=== PATIENT | female | born 1955 | race African-American/Black ===

== ENCOUNTER 2016-09-05 11:47 | Emergency (ER) | payer OTHER ==
[~2016-09-05] VITALS: Ht 162.6 cm; Wt 56.7 kg
[2016-09-05 12:29] VITALS: BP 167/71
--- NOTE | 2016-09-05 12:30 | Emergency Room Report ---
History of Present Illness General Chief Complaint: Skin Rash/Abscess Source: Patient Present Illness HPI 61-year-old female presents to emergency department complaining of itchy rash to the scalp and posterior neck x4 days. Patient states onset of symptoms was after having her hair dyed. Patient reports moderate scratching and new onset scabbing and crusting to the back of the neck x2 days. Patient denies nausea vomiting fevers chills neck pain or stiffness. Patient states she has been applying Vaseline with no relief. She denies contacts/ or family members with similar symptoms. She reports erythema of the scalp. Denies swelling of the lips, tongue or airway, denies wheezing or difficulty breathing. Denies rash or symptoms elsewhere on the body. Denies CP, Palpitations, LOC, AMS, dizziness , Changes in Vision, Sensation, paresthesias, or a sudden severe headache. Allergies: Coded Allergies: PENICILLIN G (Verified Allergy, Mild, RASH, 02/24/11) Patient History Past Medical History: see triage record Past Surgical History: none Pertinent Family History: none Now: No Immunizations: UTD Reviewed Nursing Documentation: PMH: Agreed, PSxH: Agreed Nursing Documentation-PMH Past Medical History: No History, Except For Hx Diabetes: Yes Review of Systems All Other Systems: negative except mentioned in HPI Physical Exam Vital Signs Date Time Temp Pulse Resp B/P Pulse Ox O2 Delivery O2 Flow Rate FiO2 09/05/16 12:17 98.1 78 16 173/72 98 Room Air Sp02 EP Interpretation: reviewed, normal General Appearance: no apparent distress, alert, GCS 15, non-toxic Head: normocephalic, atraumatic, other - erythema, crusting, and excoriations noted to the scalp, no evidnce of infestation. Eyes: bilateral eye PERRL, bilateral eye normal inspection ENT: hearing grossly normal, normal pharynx, no angioedema, normal voice, TMs + canals normal, uvula midline Neck: full range of motion, no meningismus, no bony tend, supple/symm/no masses Respiratory: lungs clear, normal breath sounds, speaking full sentences Cardiovascular #1: regular rate, rhythm, no edema Musculoskeletal: back normal, gait/station normal, normal range of motion, non- tender Neurologic: alert, oriented x3, responsive, motor strength/tone normal, sensory intact, speech normal Psychiatric: judgement/insight normal, memory normal, mood/affect normal, no suicidal/homicidal ideation Skin: warm/dry, well hydrated, rash - erythema, crusting, and excoriations noted to the scalp, no evidnce of infestation. Lymphatic: no adenopathy Medical Decision Making PA Attestation Dr. Peace is my supervising Physician whom patient management has been discussed with. Diagnostic Impression: Primary Impression: Acute dermatitis Additional Impression: Cellulitis Qualified Codes: L03.811 - Cellulitis of head [any part, except face] ER Course 61-year-old female presents to emergency department complaining of itchy rash to the scalp and posterior neck x4 days. Patient states onset of symptoms was after having her hair dyed. Patient reports moderate scratching and new onset scabbing and crusting to the back of the neck x2 days. Patient denies nausea vomiting fevers chills neck pain or stiffness. Patient states she has been applying Vaseline with no relief. She denies contacts/ or family members with similar symptoms. She reports erythema of the scalp. Denies rash or symptoms elsewhere on the body. Ddx considered but are not limited to cellulitis, Lice, scabies, shingles, varicella, dermatitis, urticaria, eczema, tinea Vital signs: are WNL, pt. is afebrile H&PE are most consistent with Acute dermatitis with secondary infection noted. ORDERS: none required at this time, the diagnosis is clinical ED INTERVENTIONS: -Prednisone PO. D/w pt. care plan, and follow up instructions. DISCHARGE: At this time pt. is stable for d/c to home. Will provide printed patient care instructions, and any necessary prescriptions. Care plan and follow up instructions have been discussed with the patient prior to discharge. Last Vital Signs Date Time Temp Pulse Resp B/P Pulse Ox O2 Delivery O2 Flow Rate FiO2 09/05/16 12:17 98.1 78 16 173/72 98 Room Air Disposition: HOME, SELF-CARE Condition: Stable Scripts Bacitracin Zinc/Polymyx B Sulf (HM DOUBLE ANTIBIOTIC OINTMENT) 28.4 Gm Oint...g. 1 APPLIC TP BID, #28.4 GM Prov: Kristal Casas 09/05/16 Prednisone* (PREDNISONE*) 20 Mg Tablet 40 MG ORAL DAILY for 5 Days, #10 TAB Prov: Kirstal Casas.Joelle 09/05/16 Hydroxyzine HCl (Hydroxyzine HCl) 25 Mg Tablet 25 MG ORAL FOUR TIMES A DAY for 10 Days, #40 TAB Prov: Kristal Casas 09/05/16 Doxycycline Monohydrate* (DOXYCYCLINE MONOHYDRATE*) 100 Mg Capsule 100 MG ORAL TWICE A DAY for 7 Days, #14 CAP 0 Refills Prov: Kristal Casas 09/05/16 Patient Instructions: Cellulitis, [id number], Rash Additional Instructions: Take medications as directed. Follow up with PCP in 3-5 days Return sooner to ED if new symptoms occur, or current symptoms become worse. - Please note that this Emergency Department Report was dictated using [employer] technology software, occasionally this can lead to erroneous entry secondary to interpretation by the dictation equipment. Kristal Casas Sep 05, 2016 12:30
[2016-09-05] MEDS ORDERED: HM DOUBLE ANT28.4 G1 TP (12:33)
[2016-09-05] MEDS ORDERED: PREDNISONE20 MG ORAL (12:33)
[2016-09-05] MEDS ORDERED: DOXYCYCLINE MO100 MG ORAL (12:33)
[2016-09-05] MEDS ORDERED: ATARAX25 MG ORAL (12:33)
[2016-09-05] MEDS ORDERED: PredniSONE 20mg tab ORAL ONE (12:45)
[2016-09-05 13:26] VITALS: BP 158/72
== END 2016-09-05 13:30 | disposition home or self-care (01) ==
LOC: EMR 12:45
DX: L30.9 Dermatitis, unspecified (principal); L03.811 Cellulitis of head [any part, except face]; Z88.0 Allergy status to penicillin; E11.9 Type 2 diabetes mellitus without complications
CPT/HCPCS: 99284

== ENCOUNTER 2016-09-16 05:01 | Emergency (ER) | payer OTHER ==
[~2016-09-16] VITALS: Ht 162.6 cm; Wt 70.8 kg
[~2016-09-16 05:01] MED LIST: ATARAX25 MG ORAL; DOXYCYCLINE MO100 MG ORAL; HM DOUBLE ANT28.4 G1 TP; PREDNISONE20 MG ORAL
[2016-09-16] MEDS ORDERED: HYDROCORTISONE28 G2 TP (05:38)
[2016-09-16 05:45] VITALS: BP 120/75
[2016-09-16 05:56] VITALS: BP 120/75
--- NOTE | 2016-09-21 15:15 | Emergency Room Report ---
History of Present Illness General Chief Complaint: Skin Rash/Abscess Source: Patient Present Illness HPI Patient's a 61-year-old female who presented after having increased skin rash and itching to her scalp. Patient had recently been seen in the hospital and given prescription for taking medications as well as steroids. The patient had been using Neosporin to the affected area. Patient reported having increased itching to the scalp locations. She also reported having increased rash to the back of her neck. Allergies: Coded Allergies: PENICILLIN G (Verified Allergy, Mild, RASH, 02/24/11) Patient History Past Medical History: see triage record Last Menstrual Period: NA Now: No Reviewed Nursing Documentation: PMH: Agreed, PSxH: Agreed Nursing Documentation-PMH Hx Diabetes: Yes Review of Systems All Other Systems: negative except mentioned in HPI Physical Exam Vital Signs Date Time Temp Pulse Resp B/P Pulse Ox O2 Delivery O2 Flow Rate FiO2 09/16/16 05:06 97.2 87 18 120/75 98 Room Air General Appearance: well appearing, no apparent distress, GCS 15 Head: normocephalic, atraumatic ENT: hearing grossly normal, normal voice Neck: full range of motion, supple Respiratory: no respiratory distress, speaking full sentences Musculoskeletal: normal inspection, no calf tenderness Neurologic: normal inspection, alert, normal gait Psychiatric: mood/affect normal Skin: other - multiple papules to neck and scalp Medical Decision Making Diagnostic Impression: Primary Impression: Contact dermatitis ER Course Patient presented for skin rash. Differential diagnosis included wasn't limited to cellulitis, or urticaria, contact dermatitis, allergic reaction among others. Patient's benign exam and does not appear to require any further imaging or laboratory testing at this time. The patient was given prescription for steroid cream. The patient is advised to follow up with primary care doctor in 1-2 days. Patient is advised to return if any worsening condition or if any changes in status that are concerning. Last Vital Signs Date Time Temp Pulse Resp B/P Pulse Ox O2 Delivery O2 Flow Rate FiO2 09/16/16 05:56 97.2 18 120/75 98 Room Air 09/16/16 05:06 87 Status: improved Disposition: HOME, SELF-CARE Condition: Stable Scripts Hydrocortisone Acetate 1% Onit (HYDROCORTISONE 1% OINT) Y Oint 28 GM TP DAILY, #28 GM Prov: Lakhwinder Lopez 09/16/16 Referrals: [facility]ERR[facility] (PCP) Departure Forms: Return to Work Return to Work in (Days): 3 Patient Instructions: Contact Dermatitis Lakhwinder Lopez Sep 21, 2016 15:15
== END 2016-09-16 05:50 | disposition home or self-care (01) ==
LOC: EMR 05:24
DX: L25.9 Unspecified contact dermatitis, unspecified cause (principal); Z88.0 Allergy status to penicillin; E11.9 Type 2 diabetes mellitus without complications
CPT/HCPCS: 99283

== ENCOUNTER 2016-11-24 06:50 | Emergency (ER) | payer OTHER ==
[~2016-11-24] VITALS: Ht 170.2 cm; Wt 72.6 kg
[~2016-11-24 06:50] MED LIST changes: +HYDROCORTISONE28 G2 TP
[2016-11-24] MEDS ORDERED: OMEPRAZOLE40 M1 ORAL (07:01)
[2016-11-24] MEDS ORDERED: LANTUS SOL100 UNIT/1 SUBQ (07:01)
[2016-11-24] MEDS ORDERED: METFORMIN HCL1000 M1 ORAL (07:01)
[2016-11-24] MEDS ORDERED: GABAPENTIN300 MG ORAL (07:01)
[2016-11-24] MEDS ORDERED: ASPIR 8181 MG ORAL (07:01)
[2016-11-24 07:10] VITALS: BP 147/75
[2016-11-24] MEDS ORDERED: Morphine Sulfate 4mg/ml Inj IVP ONE (07:30)
[2016-11-24 08:02] LABS: BASOPHILS % (AUTO) 2.3 % (0.0-2.0); EOSINOPHILS % (AUTO) 2.4 % (0.0-3.0); LYMPHOCYTES % (AUTO) 33.3 % (20.0-45.0); MEAN CORPUSCULAR HEMOGLOBIN 29.8 PG (27.0-31.0); MEAN CORPUSCULAR HGB CONC 33.1 G/DL (32.0-36.0); MEAN CORPUSCULAR VOLUME 90 FL (80-99); MEAN PLATELET VOLUME 9.9 FL (6.5-10.1); NEUTROPHILS % (AUTO) 48.1 % (45.0-75.0); PLATELET COUNT 167 K/UL (150-450); RED BLOOD COUNT 4.18 M/UL (4.20-5.40); RED CELL DISTRIBUTION WIDTH 11.6 % (11.6-14.8); WHITE BLOOD COUNT 3.7 K/UL (4.8-10.8)
[2016-11-24 08:10] LABS: ALANINE AMINOTRANSFERASE 11 U/L (3-33); ALBUMIN/GLOBULIN RATIO 0.8 (1.0-2.7); ANION GAP 13 (5-15); APPEARANCE,URINE CLEAR; ASPARTATE AMINO TRANSFERASE 17 U/L (5-40); CALCIUM 9.4 mg/dL (8.6-10.2); CARBON DIOXIDE 25 mEQ/L (20-30); CHLORIDE 96 mEQ/L (98-107); CREATININE 0.8 mg/dL (0.5-0.9); GLOMERULAR FILTRATION RATE > 60 mL/min (>60); HEMOLYSIS 71; KETONES,URINE NEGATIVE (NEGATIVE); LEUKOCYTE ESTERASE ,URINE NEGATIVE (NEGATIVE); LIPASE 36 U/L (< 60); NITRITE,URINE NEGATIVE (NEGATIVE); PH,URINE 5 (4.5-8.0); POTASSIUM 4.8 mEQ/L (3.4-4.9); PROTEIN,URINE 3+ (NEGATIVE); SODIUM 134 mEQ/L (135-145); TOTAL PROTEIN 7.6 g/dL (6.6-8.7); UROBILINOGEN,URINE NORMAL MG/DL (0.0-1.0)
--- NOTE | 2016-11-24 08:11 | Emergency Room Report ---
History of Present Illness General Chief Complaint: Pain Source: Patient Present Illness HPI 61-year-old female presents to ED complaining of flank pain. Patient notes pain to left side of abdomen. States it's been there for many months now but is worse for the last few days. Pain is sharp, left-sided, nonradiating. Worse with positional changes. /10. Denies fevers or chills. Denies nausea or vomiting. Denies dysuria or hematuria. No other aggravating or relieving factors. Denies any other substance symptoms Allergies: Coded Allergies: PENICILLINS (Verified Allergy, Unknown, Rash, 11/24/16) Patient History Past Medical History: HTN, COPD Past Surgical History: none Pertinent Family History: none Social History: Denies: alcohol use, drug use, smoking Last Menstrual Period: n/a Now: No Immunizations: UTD Reviewed Nursing Documentation: PMH: Agreed, PSxH: Agreed Nursing Documentation-PMH Past Medical History: No History, Except For Hx Hypertension: Yes Hx Diabetes: Yes Review of Systems All Other Systems: negative except mentioned in HPI Physical Exam Vital Signs Date Time Temp Pulse Resp B/P Pulse Ox O2 Delivery O2 Flow Rate FiO2 11/24/16 06:55 97.5 91 16 147/75 98 Room Air Sp02 EP Interpretation: reviewed, normal General Appearance: no apparent distress, alert, GCS 15, non-toxic Head: normocephalic, atraumatic Eyes: bilateral eye PERRL, bilateral eye normal inspection ENT: hearing grossly normal, normal pharynx, no angioedema, normal voice Neck: full range of motion, supple/symm/no masses Respiratory: chest non-tender, lungs clear, normal breath sounds, speaking full sentences Cardiovascular #1: regular rate, rhythm, no edema Cardiovascular #2: 2+ carotid (R), 2+ carotid (L), 2+ radial (R), 2+ radial (L) , 2+ dorsalis pedis (R), 2+ dorsalis pedis (L) Gastrointestinal: normal bowel sounds, soft, non-distended, no guarding, no rebound, tenderness - L sided abd TTP Rectal: deferred Genitourinary: normal inspection, no CVA tenderness Musculoskeletal: back normal, gait/station normal, normal range of motion, non- tender Neurologic: alert, oriented x3, responsive, motor strength/tone normal, sensory intact, speech normal Psychiatric: judgement/insight normal, memory normal, mood/affect normal, no suicidal/homicidal ideation Reflexes: 3+ bicep (R), 3+ bicep (L), 3+ tricep (R), 3+ tricep (L), 3+ knee (R) , 3+ knee (L) Skin: normal color, no rash, warm/dry, well hydrated Lymphatic: no adenopathy Medical Decision Making Diagnostic Impression: Primary Impression: Abdominal muscle pain ER Course Hospital Course 61-year-old F presents to ED with abdominal pain Differential diagnosis includes-appendicitis, cholecystitis, small bowel obstruction, gastritis, Clinical course Patient placed on stretcher. After initial history and physical I ordered labs , IV fluids, pain medications and CT scan Labs - no leukocytosis, electrolytes ok, LFTs normal, UA unremarkable CT scan shows no acute pathology In light of normal workup and negative CT I believe patient's pain is likely muscular as it was on the lateral side of the abdomen. 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 we will treat as muscular pain I feel this is a highly complex case requiring extensive working including EKG/ Rhythm strip, Xray/CT/US, Blood/urine lab work, repeat exams while in ED, and administration of strong opiates/narcotics for pain control, admission to hospital or close patient follow up. Diagnosis - abdominal muscle pain Stable and discharged to home with Rx Tylenol, Flexeril. Followup with PMD. Return to ED if symptoms recur or worsen Labs Test 11/24/16 07:30 White Blood Count 3.7 K/UL (4.8-10.8) Red Blood Count 4.18 M/UL (4.20-5.40) Hemoglobin 12.5 G/DL (12.0-16.0) Hematocrit 37.7 % (37.0-47.0) Mean Corpuscular Volume 90 FL (80-99) Mean Corpuscular Hemoglobin 29.8 PG (27.0-31.0) Mean Corpuscular Hemoglobin Concent 33.1 G/DL (32.0-36.0) Red Cell Distribution Width 11.6 % (11.6-14.8) Platelet Count 167 K/UL (150-450) Mean Platelet Volume 9.9 FL (6.5-10.1) Neutrophils (%) (Auto) 48.1 % (45.0-75.0) Lymphocytes (%) (Auto) 33.3 % (20.0-45.0) Monocytes (%) (Auto) 14.0 % (1.0-10.0) Eosinophils (%) (Auto) 2.4 % (0.0-3.0) Basophils (%) (Auto) 2.3 % (0.0-2.0) Urine Color Pale yellow Urine Appearance Clear Urine pH 5 (4.5-8.0) Urine Specific [place] 1.020 (1.005-1.035) Urine Protein 3+ (NEGATIVE) Urine Glucose (UA) 4+ (NEGATIVE) Urine Ketones Negative (NEGATIVE) Urine Occult Blood 1+ (NEGATIVE) Urine Nitrite Negative (NEGATIVE) Urine Bilirubin Negative (NEGATIVE) Urine Urobilinogen Normal MG/DL (0.0-1.0) Urine Leukocyte Esterase Negative (NEGATIVE) Urine RBC 2-4 /HPF (0 - 2) Urine WBC 0-2 /HPF (0 - 2) Urine Squamous Epithelial Cells Few /LPF (NONE/OCC) Urine Bacteria Few /HPF (NONE) Sodium Level 134 mEQ/L (135-145) Potassium Level 4.8 mEQ/L (3.4-4.9) Chloride Level 96 mEQ/L (98-107) Carbon Dioxide Level 25 mEQ/L (20-30) Anion Gap 13 (5-15) Blood Urea Nitrogen 19 mg/dL (7-23) Creatinine 0.8 mg/dL (0.5-0.9) Estimat Glomerular Filtration Rate > 60 mL/min (>60) Glucose Level 286 mg/dL (74-106) Calcium Level 9.4 mg/dL (8.6-10.2) Total Bilirubin 0.4 mg/dL (0.0-1.2) Aspartate Amino Transf (AST/SGOT) 17 U/L (5-40) Alanine Aminotransferase (ALT/SGPT) 11 U/L (3-33) Alkaline Phosphatase 101 U/L (35-104) Total Protein 7.6 g/dL (6.6-8.7) Albumin 3.5 g/dL (3.5-5.2) Globulin 4.1 g/dL Albumin/Globulin Ratio 0.8 (1.0-2.7) Lipase 36 U/L (< 60) CT/MRI/US Diagnostic Results CT/MRI/US Diagnostic Results : Imaging Test Ordered: CT A/P Impression no acute process Last Vital Signs Date Time Temp Pulse Resp B/P Pulse Ox O2 Delivery O2 Flow Rate FiO2 11/24/16 06:55 97.5 91 16 147/75 98 Room Air Status: improved Disposition: HOME, SELF-CARE Condition: Stable Scripts Cyclobenzaprine Hcl* (FLEXERIL*) 10 Mg Tablet 10 MG ORAL TID Y for Muscle Spasm, #20 TAB Prov: JOYA DELGADO M.D. 11/24/16 Acetaminophen* (TYLENOL EXTRA STRENGTH*) 500 Mg Tablet 500 MG ORAL Q8H Y for Prn Headache/Temp > 101, #30 TAB 0 Refills Prov: JOYA DELGADO M.D. 11/24/16 Referrals: [facility]REFERRING (PCP) JOYA DELGADO M.D. Nov 24, 2016 08:11
[2016-11-24 08:18] LABS: BACTERIA,URINE FEW /HPF; SQUAMOUS EPITHELIAL CELL,UR FEW /LPF (NONE/OCC); WBC,URINE 0-2 /HPF (0 - 2)
--- NOTE | 2016-11-24 09:59 | Diagnostic Imaging Report ---
Indications: Outside abdominal pain Technique: Continuous helical CT imaging of the abdomen and pelvis was performed with automatic exposure control following administration of nonionic IV contrast only, on a Siemens sensation [address] scanner. Axial, coronal, sagittal images were reconstructed at 5 mm slice thickness. No oral contrast was administered per requesting physician's order, despite no contraindications listed. CTDI volume(s): 18 mGy Total DLP: One mGy-cm Findings: Comparison: None Lack of oral contrast limits evaluation of gastrointestinal tract, nondilated throughout. Appendix unremarkable. No obvious mural thickening, adjacent stranding, extraluminal gas or fluid collections identified. Multiple small calcified stones are present within the gallbladder lumen. No obvious mural thickening or adjacent fluid. Bile ducts are mildly prominent, common bile duct measuring up to 7 mm diameter. The pancreatic duct mildly prominent, measuring up to 4 mm diameter. No associated stone or mass identified. Scattered arterial mural calcifications. No obvious flow-limiting stenosis or occlusion. Liver, pancreas, spleen, adrenal glands, kidneys, unopacified ureters and urinary bladder, uterus, bilateral adnexal regions, retroperitoneum, mesentery, remainder visualized abdominopelvic anatomy unremarkable. Small irregular pleural-based linear densities in both lung bases. Focal hazy groundglass opacity medial right lung base.. Multilevel disc marginal osteophyte formation lumbar, lower thoracic spine. IMPRESSION: Cholelithiasis. No evidence of acute cholecystitis. Mild prominence of bile and pancreatic ducts without obvious obstructive etiology. Correlate clinically. No other evidence of acute abdominopelvic disease, with limitation as described. Subtle but potentially significant abnormalities the gastrointestinal tract may be missed. Repeat CT scan with full oral and IV contrast preparation recommended for more complete evaluation, as clinically indicated Pulmonary bibasal subsegmental atelectasis versus scarring Nonspecific groundglass opacity medial right lung base-atelectasis versus edema versus inflammation versus chronic disease Mild degenerative spondylosis
[2016-11-24] MEDS ORDERED: CYCLOBENZAPRINE10 MG ORAL (10:14)
[2016-11-24] MEDS ORDERED: TYLENOL EXTRA500 MG ORAL (10:14)
[2016-11-24 10:33] VITALS: BP 153/55
== END 2016-11-24 10:33 | disposition home or self-care (01) ==
LOC: EMR 07:11
DX: R10.9 Unspecified abdominal pain (principal); I10 Essential (primary) hypertension; E11.9 Type 2 diabetes mellitus without complications; J44.9 Chronic obstructive pulmonary disease, unspecified; K80.20 Calculus of gallbladder without cholecystitis without obstruction; Z88.0 Allergy status to penicillin
CPT/HCPCS: 36415; 74177; 80053; 81003; 83690; 85025; 96360; 96361; 96374; 99284; J2270; J7040; Q9967

== ENCOUNTER 2017-10-31 09:08 | Emergency (ER) | payer OTHER ==
[~2017-10-31] VITALS: Ht 160 cm; Wt 68.0 kg
[~2017-10-31 09:08] MED LIST changes: +ASPIR 8181 MG ORAL; +CYCLOBENZAPRINE10 MG ORAL; +GABAPENTIN300 MG ORAL; +LANTUS SOL100 UNIT/1 SUBQ; +METFORMIN HCL1000 M1 ORAL; +OMEPRAZOLE40 M1 ORAL; +TYLENOL EXTRA500 MG ORAL
[2017-10-31] MEDS ORDERED: Tylenol #3 tab (300mg/30mg) ORAL ONE (09:30)
[2017-10-31] MEDS ORDERED: Ketorolac 60mg Inj IM ONE (09:30)
--- NOTE | 2017-10-31 09:31 | Emergency Room Report ---
History of Present Illness General Chief Complaint: Lower Extremity Injury Source: Patient Present Illness HPI Patient presents with complaints of right foot pain Reports that she was wearing high heels last night doesn't recall twisting her foot or doing any other trauma However this morning noticed increased pain to the right foot dorsally and also on the palmar aspect Denies any calf pain or swelling denies any chest pain or shortness of breath Patient takes Neurontin for her neuropathy with diabetes Allergies: Coded Allergies: PENICILLINS (Verified Allergy, Unknown, Rash, 11/24/16) Patient History Past Medical History: see triage record Pertinent Family History: none Reviewed Nursing Documentation: PMH: Agreed; PSxH: Agreed Nursing Documentation-PMH Hx Hypertension: Yes Hx Diabetes: Yes Review of Systems All Other Systems: negative except mentioned in HPI Physical Exam Vital Signs Date Time Temp Pulse Resp B/P (MAP) Pulse Ox O2 Delivery O2 Flow Rate FiO2 10/31/17 09:19 98.0 86 20 161/89 98 Room Air 98.1 Sp02 EP Interpretation: reviewed, normal General Appearance: well appearing, no apparent distress Head: normocephalic, atraumatic Eyes: bilateral eye PERRL, bilateral eye EOMI ENT: hearing grossly normal, normal pharynx Neck: supple Respiratory: lungs clear Cardiovascular #1: regular rate, rhythm Gastrointestinal: non tender, soft Musculoskeletal: other - Patient is tender on palpation dorsally and on the palmar aspect of the foot, there is some minimal swelling compared to the left side, the cath itself is nonswollen knee and ankle are nontender Neurologic: alert, oriented x3 Skin: other - As above Lymphatic: no adenopathy Medical Decision Making Diagnostic Impression: Primary Impression: Foot pain, right ER Course Multiple differentials considered Including but not limited to occult fracture, vascular pathology, infectious Patient's imaging does not reveal any acute pathology Patient does not have clinical symptoms consistent with DVT Patient will be trialed on anti-inflammatory Given the mild erythema and history of diabetes early cellulitis is considered, I cannot appreciate any obvious foreign body on the x-ray However patient is requested to follow-up with podiatry Other X-Ray Diagnostic Results Other X-Ray Diagnostic Results : X-Ray ordered: right foot # of Views/Limited Vs Complete: 4 View Indication: Pain EP Interpretation: Yes Interpretation: no dislocation, no soft tissue swelling, no fractures Impression: No acute disease Electronically Signed by: Cesar Peace DO Last Vital Signs Date Time Temp Pulse Resp B/P (MAP) Pulse Ox O2 Delivery O2 Flow Rate FiO2 10/31/17 09:19 98.0 86 20 161/89 98 Room Air 98.1 Status: improved Disposition: HOME, SELF-CARE Condition: Improved Scripts Trimethoprim/Sulfamethoxazole 160/800* (BACTRIM DS TABLET*) 1 Each Tablet 1 TAB ORAL Q12H, #14 TAB 0 Refills Prov: Cesar Peace DO 10/31/17 Acetaminophen With Codeine (T#3) (TYLENOL #3 TAB*) Y Tab 1 TAB ORAL Q8H PRN for For Pain, #10 TAB Prov: Cesar Peace DO 10/31/17 Ibuprofen* (MOTRIN*) 600 Mg Tablet 600 MG ORAL Q8H PRN for For Pain, #20 TAB 0 Refills Prov: Cesar Peace DO 10/31/17 Additional Instructions: Patient is provided with the discharge instructions notified to follow up with primary doctor in the next 2-3 days otherwise return to the er with any worsening symptoms. Please note that this report is being documented using [employer] technology. This can lead to erroneous entry secondary to incorrect interpretation by the dictating instrument. Cesar Peace DO October 31, 2017 09:31
[2017-10-31] MEDS ORDERED: IBUPROFEN600 MG ORAL (10:25)
[2017-10-31] MEDS ORDERED: ACETAMINOPHEN-1 EAC1 ORAL (10:25)
[2017-10-31] MEDS ORDERED: BACTRIM DS TAB1 EAC1 ORAL (10:25)
[2017-10-31 10:37] VITALS: BP 158/78
--- NOTE | 2017-10-31 15:42 | Diagnostic Imaging Report ---
EXAM: XR Right Foot Complete, 3 or More Views CLINICAL HISTORY: PAIN TECHNIQUE: Frontal, lateral and oblique views of the right foot. COMPARISON: No relevant prior studies available. FINDINGS: Bones/joints: No visible displaced fracture. No dislocation. No osseous erosions. Incidental note of a 4 mm well-corticated adjacent and lateral to the cuboid, likely an accessory ossicle. Mild degenerative narrowing in the interphalangeal joints. Visualized joint spaces otherwise appear unremarkable. Soft tissues: Unremarkable. No radiopaque foreign body. IMPRESSION: No acute findings.
== END 2017-10-31 10:38 | disposition home or self-care (01) ==
LOC: EMR 09:30
DX: M79.644 Pain in right finger(s) (principal); Z88.0 Allergy status to penicillin; I10 Essential (primary) hypertension; E11.9 Type 2 diabetes mellitus without complications
CPT/HCPCS: 96372; 99284

== ENCOUNTER 2018-08-26 23:08 | Inpatient (IN) | payer SELFPAY ==
[~2018-08-26] VITALS: Ht 165.1 cm; Wt 78.6 kg
[~2018-08-26 23:08] MED LIST changes: +ACETAMINOPHEN-1 EAC1 ORAL; +BACTRIM DS TAB1 EAC1 ORAL; +IBUPROFEN600 MG ORAL
--- NOTE | 2018-08-26 23:26 | NUR ---
ED Nurse Note: pt walked in c/o sob x 3 days, pt denies william/cp/cough/fever. temp 101.4 in triage. Pt states she called 911 earlier for palpitations but AMA and drove to the hospital. pt AA&ox4, gcs=15, skin warm and dry, resp even and unlabored on RA, LS= diminished and mild rhonchi, -n/v/d, ambulates w/ steady gait, no sx resp distress at this time. Sinus tach on shelter monitor, vss, will cont monitor.
[2018-08-26 23:35] VITALS: BP 130/56
[2018-08-26] MEDS ORDERED: Acetaminophen 500mg (ES) tab ORAL ONE (23:45)
--- NOTE | 2018-08-26 23:45 | NUR ---
ED Nurse Note: ERMD AWARE PT'S LAB, ELEVATED TROPONIN.
[2018-08-27] VITALS (9 sets, daily range): BP systolic 128–159; BP diastolic 56–87
--- NOTE | 2018-08-27 | NUR ---
Note undone in EDM - 08/27/18 at 0341 by KPAHARRY ED Nurse Note: pt walked in c/o sob x 3 days, pt denies william/cp/cough/fever. temp 101.4 in triage. pt AA&ox4, gcs=15, skin warm and dry, resp even and unlabored on RA, -n/v/d, ambulates w/ steady gait, noted diminished LS bases, no sx resp distress at this time. Sinus tach on secured entrance monitor, vss, will cont monitor.
[2018-08-27 00:04] LABS: HEMATOCRIT 33.1 % (37.0-47.0); HEMOGLOBIN 10.9 G/DL (12.0-16.0); MEAN CORPUSCULAR VOLUME 92 FL (80-99); PLATELET COUNT 140 K/UL (150-450); RED BLOOD COUNT 3.61 M/UL (4.20-5.40); RED CELL DISTRIBUTION WIDTH 11.4 % (11.6-14.8)
[2018-08-27 00:06] LABS: APPEARANCE,URINE SLIGHTLY CLOUDY; BILIRUBIN, URINE NEGATIVE (NEGATIVE); GLUCOSE, URINE (UA) NEGATIVE (NEGATIVE); KETONES,URINE NEGATIVE (NEGATIVE); LEUKOCYTE ESTERASE ,URINE 1+ (NEGATIVE); NITRITE,URINE NEGATIVE (NEGATIVE); PH,URINE 5 (4.5-8.0); PROTEIN,URINE 4+ (NEGATIVE); UROBILINOGEN,URINE 1 MG/DL (0.0-1.0)
[2018-08-27 00:13] LABS: COLOR,URINE YELLOW
[2018-08-27 00:23] LABS: ANION GAP 9 mmol/L (5-15); BLOOD UREA NITROGEN 29 mg/dL (7-18); CALCIUM 9.3 MG/DL (8.5-10.1); CARBON DIOXIDE 25 MMOL/L (21-32); CHLORIDE 100 MMOL/L (98-107); CREATININE 1.5 MG/DL (0.55-1.30); POTASSIUM 4.2 MMOL/L (3.5-5.1); SODIUM 134 MMOL/L (136-145)
[2018-08-27] MEDS ORDERED: cefTRIAXone 1 GM in NS 55 ML IVPB ONE (00:30)
[2018-08-27] MEDS ORDERED: Azithromycin 250mg tab ORAL ONE (00:30)
[2018-08-27 00:46] LABS: ALANINE AMINOTRANSFERASE 55 U/L (12-78); ALBUMIN/GLOBULIN RATIO 0.6 (1.0-2.7); ALKALINE PHOSPHATASE 164 U/L (46-116); ASPARTATE AMINO TRANSFERASE 39 U/L (15-37); BILIRUBIN,TOTAL 0.6 MG/DL (0.2-1.0); CKMB < 0.5 NG/ML (0.0-3.6); CREATINE KINASE 64 U/L (26-308)
--- NOTE | 2018-08-27 01:16 | Emergency Room Report ---
History of Present Illness General Chief Complaint: Dyspnea/Respdistress Source: Patient, Medical Record Present Illness HPI Is a 63-year-old female with a history of diabetes and high blood pressure. She presents with chief complaint of chills and palpitation. 3 days ago she has rigors. Today she has palpitation and said her heart rate was beating fast but she called 911. EMS did an EKG and initial possible inferior lead STEMI. She AMA and drove here. She denies any chest pain. No longer having palpitation. Does have fever or chills. Does have body pain. No urinary complaint. Does have some slight cough. No diaphoresis. No radicular pain. No shortness of breath. Allergies: Coded Allergies: PENICILLINS (Verified Allergy, Unknown, Rash, 11/24/16) Patient History Past Medical History: DM, HTN Past Surgical History: other Pertinent Family History: none Social History: Denies: smoking Now: No Immunizations: other Reviewed Nursing Documentation: PMH: Agreed; PSxH: Agreed Nursing Documentation-PMH Hx Hypertension: Yes Hx Diabetes: Yes Review of Systems Constitutional: Reports: chills, fever, malaise Eye: Denies: eye pain, blurred vision ENT: Denies: ear pain, nose congestion, throat swelling Respiratory: Reports: cough; Denies: shortness of breath Cardiovascular: Denies: chest pain, palpitations Gastrointestinal: Denies: abdominal pain, diarrhea, nausea, vomiting Musculoskeletal: Denies: back pain, joint pain Skin: Denies: rash Neurological: Denies: headache, numbness Endocrine: Denies: increased thirst, increased urine Hematologic/Lymphatic: Denies: easy bruising All Other Systems: negative except mentioned in HPI Physical Exam Vital Signs Date Time Temp Pulse Resp B/P (MAP) Pulse Ox O2 Delivery O2 Flow Rate FiO2 08/26/18 23:22 101.5 107 18 130/59 100 Room Air vitals with fever Sp02 EP Interpretation: reviewed, normal General Appearance: well appearing, no apparent distress, alert Head: normocephalic, atraumatic Eyes: bilateral eye PERRL, bilateral eye EOMI ENT: hearing grossly normal, normal pharynx Neck: full range of motion, supple, no meningismus Respiratory: chest non-tender, normal breath sounds, rhonchi - Slight Cardiovascular #1: regular rate, rhythm, no murmur Gastrointestinal: normal bowel sounds, non tender, no mass, no organomegaly, no bruit, non-distended Musculoskeletal: back normal, gait/station normal, normal range of motion Psychiatric: mood/affect normal Skin: warm/dry Medical Decision Making Diagnostic Impression: Primary Impression: CAP (community acquired pneumonia) Qualified Codes: J18.1 - Lobar pneumonia, unspecified organism Additional Impressions: UTI (urinary tract infection) Qualified Codes: N30.00 - Acute cystitis without hematuria Abnormal EKG ER Course Patient presents with fever and rigors. Chest x-ray showed atelectasis, his to show infiltrate in the right lower lobe. She does have an abnormal cardiac enzyme. He has no chest pain or shortness of breath. This may be a troponin leak secondary to infection. Could also be myocarditis. I discussed the case with Dr. Liang, animal care attendant at [facility]. He thinks this is an old finding on EKG. Recommend repeat troponin in a few hours to see if it goes up. It was increase very high, can transfer the patient to Polysomnographic Technologist at [facility]. His moment, she does not meet criteria for STEMI. Repeat trop slightly higher. will admit here. I contacted Dr. Solano for admission. Lab Results Impression labs with elevated troponin EKG Diagnostic Results Rate: normal Rhythm: NSR ST Segments: other - Nonspecific ST changes ASA given to the pt in ED: Yes Rhythm Strip Diag. Results EP Interpretation: yes Rate: 100 Rhythm: NSR, no PVC's, no ectopy Chest X-Ray Diagnostic Results Chest X-Ray Diagnostic Results : Chest X-Ray Ordered: Yes # of Views/Limited/Complete: 1 View Indication: Shortness of Breath EP Interpretation: Yes Interpretation: no effusion, no pneumothorax, no acute cardiopulmonary disease, other - rll infiltrates Impression: Other - rll infiltrate Electronically Signed by: Ravinder Mendoza MD Last Vital Signs Date Time Temp Pulse Resp B/P (MAP) Pulse Ox O2 Delivery O2 Flow Rate FiO2 08/26/18 23:35 107 18 Room Air 08/26/18 23:35 101.5 130/56 100 Status: improved Disposition: ADMITTED INPATIENT Condition: Serious Referrals: NOT CHOSEN IPA/,REFERRING (PCP) Ravinder Mendoza MD Aug 27, 2018 01:16
--- NOTE | 2018-08-27 01:40 | NUR ---
ED Nurse Note: Per ERMD order, repeat troponin at 0400am
[2018-08-27] MEDS ORDERED: Aspirin Baby 81mg ORAL ONE (02:00)
--- NOTE | 2018-08-27 02:00 | NUR ---
ED Nurse Note: pt assisted to restroom, steady gait noted, void x1.
--- NOTE | 2018-08-27 03:45 | NUR ---
HAND-OFF: Report given to RN Nicolasa and endorsed care, pt sinus tach on youth nutritional monitor, vss, resp even and unlabored on RA, denies cp/sob/pain at this time. iv intact and patent. endorsed redraw troponin lab at 0400 to receiving rn.
--- NOTE | 2018-08-27 04:02 | NUR ---
ED Nurse Note: redraw troponin sent to lab
--- NOTE | 2018-08-27 05:00 | NUR ---
Note undone in EDM - 08/27/18 at 0523 by PORTILLO ED Nurse Note: PT TRANSFERRED TO TELE UNIT WITH NISHANT CHOI AND DAISHA POPE. PT WAS ACCOMPANIED BY RIB BUILDER. PT IS AOX4, VSS STABLE, ON ROOM AIR. PT TOOK ALL BELONGINGS. PT SKIN IS INTACT. PT IS IN NO ACUTE DISTRESS
--- NOTE | 2018-08-27 05:02 | NUR ---
ED Nurse Note: REPORT GIVEN TO NISHANT WHITESIDE
--- NOTE | 2018-08-27 05:05 | NUR ---
ED Nurse Note: PT TRANSFERRED TO TELE UNIT WITH JIMBO RN AND DAISHA POPE. PT WAS ACCOMPANIED BY BUTCHER ASSISTANT. PT IS AOX4, VSS STABLE, ON ROOM AIR. PT TOOK ALL BELONGINGS. PT SKIN IS INTACT. PT IS IN NO ACUTE DISTRESS
--- NOTE | 2018-08-27 05:10 | NUR ---
NURSE NOTES: Received pt. from ER via bed. Pt. transferred to bed without any incident. Received report from NISHANT Baldwin. Belongings list checked and accounted. youth nutritional monitor is in placed, IV site intact, asymptomatic and patent. Bed is in the lowest position and locked, call light within reach. No chest pain or acute distress noted at this time. Will call Dr. Solano for admission orders.
[2018-08-27] MEDS ORDERED: Cyclobenzaprine 10mg Tab ORAL PRN (07:15)
[2018-08-27] MEDS ORDERED: Tylenol #3 tab (300mg/30mg) ORAL PRN ×2 (07:15→07:45)
--- NOTE | 2018-08-27 07:29 | NUR ---
HAND-OFF: Report given to NISHANT Crespo.
--- NOTE | 2018-08-27 07:37 | NUR ---
NURSE NOTES: received patient report from batsheva rn. patient is on bed asleep. not in acute distress. sr to st per report. no other arrythmias reported. bed is low and locked for safety. will follow plan of care.
[2018-08-27] MEDS: Aspirin EC 81mg tab ORAL SCH (08:21)
[2018-08-27] MEDS: Heparin 5000 units/ml inj SUBQ SCH ×2 (08:22→21:00)
--- NOTE | 2018-08-27 08:34 | Diagnostic Imaging Report ---
EXAM: XR Chest, 1 View CLINICAL HISTORY: WEAK TECHNIQUE: Frontal view of the chest. COMPARISON: Chest x-ray dated 08/26/18 FINDINGS: Lungs: Retrocardiac capacity which may represent atelectasis versus airspace disease/pneumonia. Mildly increased interstitial markings. Pleural space: Unremarkable. The costophrenic angles are sharp. No visible pneumothorax. Heart: Cardiomegaly. Mediastinum: Unremarkable. Bones/joints: Unremarkable. Tubes, lines and devices: Telemetry leads overlie the thorax. IMPRESSION: 1. Retrocardiac capacity which may represent atelectasis versus airspace disease/pneumonia. 2. Mildly increased interstitial markings. This is nonspecific but may suggest mild pulmonary vascular congestion or a mild interstitial pneumonitis. 3. Cardiomegaly.
[2018-08-27] MEDS ORDERED: HydrOXYzine tab 25mg tab ORAL SCH (09:00)
[2018-08-27] MEDS ORDERED: Atenolol 25mg tab ORAL SCH (09:00)
[2018-08-27] MEDS ORDERED: metFORMIN 500mg tab ORAL SCH (09:00)
[2018-08-27] MEDS ORDERED: SIMVASTATIN20 MG ORAL (09:34)
--- NOTE | 2018-08-27 09:34 | History & Physical ---
History and Physical History & Physicial 63-year-old female with a history of diabetes and high blood pressure. She presents with chief complaint of chills and palpitation. 3 days ago she has rigors. Today she has palpitation and said her heart rate was beating fast but she called 911. noted to have elevated troponin. She denies any chest pain at present. Does have fever or chills. Does have body pain. No urinary complaint. Does have some slight cough. No diaphoresis. No radicular pain. No shortness of breath. ALLERGIES: PENICILLINS (Verified Allergy, Unknown, Rash, 11/24/16) Past Medical History: DM, HTN Past Surgical History: NONE Pertinent Family History: none Social History: Denies: smoking Physical WDWN NAD clear breath sounds bilaterally without rhonchi or wheeze [id number] without MRG NABS nontender no HSM no CCE nonfocal Laboratory Tests Test 08/26/18 23:45 08/27/18 04:00 White Blood Count 8.0 K/UL (4.8-10.8) Red Blood Count 3.61 M/UL (4.20-5.40) L Hemoglobin 10.9 G/DL (12.0-16.0) L Hematocrit 33.1 % (37.0-47.0) L Mean Corpuscular Volume 92 FL (80-99) Mean Corpuscular Hemoglobin 30.3 PG (27.0-31.0) Mean Corpuscular Hemoglobin Concent 33.0 G/DL (32.0-36.0) Red Cell Distribution Width 11.4 % (11.6-14.8) L Platelet Count 140 K/UL (150-450) L Mean Platelet Volume 8.8 FL (6.5-10.1) Neutrophils (%) (Auto) % (45.0-75.0) Lymphocytes (%) (Auto) % (20.0-45.0) Monocytes (%) (Auto) % (1.0-10.0) Eosinophils (%) (Auto) % (0.0-3.0) Basophils (%) (Auto) % (0.0-2.0) Differential Total Cells Counted 100 Neutrophils % (Manual) 90 % (45-75) H Lymphocytes % (Manual) 3 % (20-45) L Monocytes % (Manual) 6 % (1-10) Eosinophils % (Manual) 1 % (0-3) Basophils % (Manual) 0 % (0-2) Band Neutrophils 0 % (0-8) Platelet Estimate Adequate Platelet Morphology Normal Prothrombin Time 10.7 SEC (9.30-11.50) Prothromb Time International Ratio 1.0 (0.9-1.1) Activated Partial Thromboplast Time 30 SEC (23-33) Urine Color Yellow Urine Appearance Slightly cloudy Urine pH 5 (4.5-8.0) Urine Specific [place] 1.015 (1.005-1.035) Urine Protein 4+ (NEGATIVE) H Urine Glucose (UA) Negative (NEGATIVE) Urine Ketones Negative (NEGATIVE) Urine Blood 2+ (NEGATIVE) H Urine Nitrite Negative (NEGATIVE) Urine Bilirubin Negative (NEGATIVE) Urine Urobilinogen 1 MG/DL (0.0-1.0) H Urine Leukocyte Esterase 1+ (NEGATIVE) H Urine RBC 2-4 /HPF (0 - 2) H Urine WBC 10-15 /HPF (0 - 2) H Urine Squamous Epithelial Cells Occasional /LPF Urine Bacteria Few /HPF (NONE) Sodium Level 134 MMOL/L (136-145) L Potassium Level 4.2 MMOL/L (3.5-5.1) Chloride Level 100 MMOL/L (98-107) Carbon Dioxide Level 25 MMOL/L (21-32) Anion Gap 9 mmol/L (5-15) Blood Urea Nitrogen 29 mg/dL (7-18) H Creatinine 1.5 MG/DL (0.55-1.30) H Estimat Glomerular Filtration Rate 42.8 mL/min (>60) Glucose Level 202 MG/DL (74-106) H Lactic Acid Level 1.10 mmol/L (0.4-2.0) Calcium Level 9.3 MG/DL (8.5-10.1) Total Bilirubin 0.6 MG/DL (0.2-1.0) Aspartate Amino Transf (AST/SGOT) 39 U/L (15-37) H Alanine Aminotransferase (ALT/SGPT) 55 U/L (12-78) Alkaline Phosphatase 164 U/L (46-116) H Total Creatine Kinase 64 U/L (26-308) Creatine Kinase MB < 0.5 NG/ML (0.0-3.6) Creatine Kinase MB Relative Index 0.7 Troponin I 0.065 ng/mL (0.000-0.056) 0.079 ng/mL (0.000-0.056) Total Protein 7.9 G/DL (6.4-8.2) Albumin 3.0 G/DL (3.4-5.0) L Globulin 4.9 g/dL Albumin/Globulin Ratio 0.6 (1.0-2.7) L IMPRESSION chest pain possible ACS dm htn elevated troponin possible NSTEMI possible pneumonia PLAN repeat cxr serial troponins cards eval stress test resume meds impression, plan, and exam edited and reviewed in detail care discussed with Jhonatan Jones MD Aug 27, 2018 09:34
[2018-08-27] MEDS ORDERED: LOSARTAN POTAS100 MG ORAL (09:35)
[2018-08-27] MEDS ORDERED: JANUVIA100 MG ORAL (09:37)
[2018-08-27] MEDS: Losartan 50mg tab ORAL SCH (13:01)
[2018-08-27] MEDS ORDERED: Nitroglycerin 2% oint pkt TOPIC SCH (14:00)
--- NOTE | 2018-08-27 19:22 | NUR ---
NURSE NOTES: Received pt. and report from NISHANT Crespo. Observe pt. resting in bed with both eyes closed. patient monitor is in placed, IV site intact, asymptomatic and patent. Bed is in the lowest position and locked. Call light within reach. No chest pain or acute distress noted at this time. Will continue plan of care.
--- NOTE | 2018-08-27 19:32 | NUR ---
HAND-OFF: Report given to batsheva bennett.
[2018-08-27] MEDS ORDERED: cefTRIAXone 1 GM in D5W 55 ML IVPB SCH (20:00)
--- NOTE | 2018-08-27 21:30 | NUR ---
NURSE NOTES: Received critical troponin result of 0.932 from bean sprout laborerNubia. Will contact Dr. Solano.
[2018-08-27] MEDS: Atorvastatin 20mg tab ORAL SCH (21:32)
[2018-08-27] MEDS: Levemir Flexpen SUBQ SCH (21:52)
[2018-08-27 21:58] LABS: CKMB 1.2 NG/ML (0.0-3.6)
--- NOTE | 2018-08-27 22:30 | NUR ---
NURSE NOTES: Contacted Dr. Solano regarding pt.'s blood glucose of 483 and elevated troponin level of 0.932. Dr. Solano contacted Dr. Yates. Addendum: 08/28/18 at 0309 by Sadie Herbert Mai, RN Pt. is asymptomatic; does not complain of any chest pain.
--- NOTE | 2018-08-27 23:06 | NUR ---
NURSE NOTES: Spoke to Dr. Yates regarding pt.'s elevated troponin level. Dr. Yates ordered STAT EKG tracing. Will carry out.
[2018-08-28] VITALS: BP 142/63
[2018-08-28] MEDS: Metoprolol 25mg tab ORAL SCH ×3 (00:16→20:52)
--- NOTE | 2018-08-28 03:45 | Consultation ---
DATE OF CONSULTATION: 08/27/2018 CARDIOLOGY CONSULTATION REASON FOR CONSULTATION: Elevated troponin levels. HISTORY OF PRESENT ILLNESS: This is a 63-year-old female. She presented to the hospital complaining of palpitations in her chest for several days. She apparently had chills and rigors. She had a fast heart beat and was brought to the hospital because her daughter called 911. She has denied ever having chest pain. She notes several years ago she had similar symptoms and was told she had suffered a heart attack, but was managed medically and never had a recurrent. Her troponin levels have continued to increase, but she remains asymptomatic since admission. ALLERGIES: Include penicillin. PAST MEDICAL HISTORY: Notable for hypertension and type 2 diabetes mellitus. MEDICATIONS: Prior to admission, reviewed and reconciled. FAMILY HISTORY: Noncontributory. SOCIAL HISTORY: Denies smoking, alcohol, or substance abuse. REVIEW OF SYSTEMS: Otherwise unremarkable. PHYSICAL EXAMINATION: GENERAL: Appears well. Lying flat. No distress. VITAL SIGNS: Blood pressure 148/82, heart rate 78, respiratory rate 18, and afebrile. NECK: Supple. Jugular venous pressure normal. Carotid upstrokes without delay. LUNGS: Clear. CARDIAC: Regular rhythm and rate. Normal S1, S2 with a fourth heart sound. ABDOMEN: Soft, nontender. EXTREMITIES: No edema. LABORATORY AND DIAGNOSTIC DATA: EKG reveals sinus rhythm, possible inferior infarction of indeterminate age, minimal voltage for left ventricular hypertrophy, and lateral T-wave inversion. Troponin 0.079, 0.721, and 0.932 respectively. CK and CK-MB are 71 and 1.2 with a negative index. IMPRESSION: 1. Possible acute myocardial infarction. 2. Hypertension, inadequately controlled. 3. Type 2 diabetes mellitus. PLAN: 1. Cardiac monitoring. 2. Antiplatelet therapy. 3. Add beta-blockade. 4. Continue nitrates. 5. Statin drug. 6. Add Plavix. 7. Check echocardiogram, venous duplex scan to check for source of pulmonary emboli and deep venous thrombosis. 8. Further recommendations will follow. Robert Yates M.D. : SHARDA JOB#: [id number] CC:
[2018-08-28 04:00] VITALS: BP 148/66
[2018-08-28 04:14] LABS: HEMATOCRIT 32.4 % (37.0-47.0); HEMOGLOBIN 10.8 G/DL (12.0-16.0); MEAN CORPUSCULAR VOLUME 90 FL (80-99); PLATELET COUNT 165 K/UL (150-450); RED BLOOD COUNT 3.59 M/UL (4.20-5.40); RED CELL DISTRIBUTION WIDTH 10.8 % (11.6-14.8); WHITE BLOOD COUNT 7.4 K/UL (4.8-10.8)
[2018-08-28 04:31] LABS: ANION GAP 7 mmol/L (5-15); BLOOD UREA NITROGEN 18 mg/dL (7-18); CALCIUM 9.2 MG/DL (8.5-10.1); CARBON DIOXIDE 25 MMOL/L (21-32); CHLORIDE 102 MMOL/L (98-107); CHOLESTEROL 139 MG/DL (< 200); CREATININE 1.2 MG/DL (0.55-1.30); HDL CHOLESTEROL 27 MG/DL (40-60); SODIUM 133 MMOL/L (136-145); TRIGLYCERIDES 105 MG/DL (30-150)
--- NOTE | 2018-08-28 04:40 | NUR ---
NURSE NOTES: Received Troponin results from garage laborerYola raya. Troponin level is slightly trending down.
[2018-08-28 04:42] LABS: CKMB 0.5 NG/ML (0.0-3.6)
--- NOTE | 2018-08-28 06:57 | NUR ---
NURSE NOTES: received patient report from batsheva bennett. patient is asleep. no acute distress noted. no arrythmias reported. SR on ht e monitor.bed is low and locked. will follow plan of care.
--- NOTE | 2018-08-28 07:00 | NUR ---
HAND-OFF: Report given to NISHANT Crespo.
[2018-08-28 08:00] VITALS: BP 143/76
[2018-08-28] MEDS: Losartan 50mg tab ORAL SCH (08:04)
[2018-08-28] MEDS: Aspirin EC 81mg tab ORAL SCH (08:04)
[2018-08-28] MEDS: Acetaminophen 500mg (ES) tab ORAL PRN ×2 (08:05→23:08)
[2018-08-28] MEDS: Heparin 5000 units/ml inj SUBQ SCH ×2 (08:07→21:02)
[2018-08-28] MEDS ORDERED: Losartan 50mg tab ORAL SCH (09:00)
--- NOTE | 2018-08-28 09:19 | NUR ---
NURSE NOTES: left a message to dr tellez that patient is positive for gram (-) rods. awaits new order as of this time.
--- NOTE | 2018-08-28 09:39 | NUR ---
NURSE NOTES: dr tellez called back and order cefepime 1g iv Q12h and dc rocephine. will take note and carry out.
[2018-08-28] MEDS ORDERED: Gentamicin Rx monitoring MISC PRN (10:00)
--- NOTE | 2018-08-28 10:00 | General Progress Note ---
Assessment/Plan Assessment/Plan IMPRESSION chest pain possible ACS dm htn elevated troponin possible NSTEMI possible pneumonia urosepsis PLAN repeat cxr cards eval noted stress test update antibiotics; check urine and blood cultures maintain meds impression, plan, and exam edited and reviewed in detail care discussed with RN Subjective Allergies: Coded Allergies: PENICILLINS (Verified Allergy, Unknown, Rash, 11/24/16) Subjective reviewed findings family at bedside patient improved Objective Last 24 Hour Vital Signs Date Time Temp Pulse Resp B/P (MAP) Pulse Ox O2 Delivery O2 Flow Rate FiO2 08/28/18 09:00 Room Air 08/28/18 08:04 73 143/76 08/28/18 08:04 143/76 08/28/18 08:00 70 08/28/18 08:00 100.5 73 18 143/76 (98) 97 08/28/18 04:00 98.2 72 18 148/66 (93) 99 08/28/18 04:00 70 08/28/18 00:16 77 142/63 08/28/18 00:00 74 08/28/18 00:00 99.7 77 17 142/63 (89) 100 08/27/18 21:00 Room Air 08/27/18 20:00 82 08/27/18 20:00 99.1 80 17 159/75 (103) 95 08/27/18 16:00 97.7 78 18 148/82 (104) 98 08/27/18 16:00 75 08/27/18 13:01 152/56 08/27/18 12:00 97.6 74 18 152/56 (88) 100 08/27/18 12:00 75 Intake and Output 08/27/18 08/28/18 19:00 07:00 Intake Total 810 ml 320 ml Balance 810 ml 320 ml Intake Oral 810 ml 320 ml # Voids 5 2 # Bowel Movements 1 1 Laboratory Tests 08/27/18 12:10: Troponin I 0.721H 08/27/18 20:20: Troponin I 0.932H, Total Creatine Kinase 71, Creatine Kinase MB 1.2, Creatine Kinase MB Relative Index 1.6 08/28/18 04:05: Troponin I 0.918H, Total Creatine Kinase 70, Creatine Kinase MB 0.5, Creatine Kinase MB Relative Index 0.7, White Blood Count 7.4, Red Blood Count 3.59L, Hemoglobin 10.8L, Hematocrit 32.4L, Mean Corpuscular Volume 90, Mean Corpuscular Hemoglobin 30.0, Mean Corpuscular Hemoglobin Concent 33.3, Red Cell Distribution Width 10.8L, Platelet Count 165, Mean Platelet Volume 8.9, Neutrophils (%) (Auto) , Lymphocytes (%) (Auto) , Monocytes (%) (Auto) , Eosinophils (%) (Auto) , Basophils (%) (Auto) , Differential Total Cells Counted 100, Neutrophils % (Manual) 64, Lymphocytes % (Manual) 21, Monocytes % ( Manual) 13H, Eosinophils % (Manual) 2, Basophils % (Manual) 0, Band Neutrophils 0, Platelet Estimate Adequate, Platelet Morphology Normal, Red Blood Cell Morphology Normal, Sodium Level 133L, Potassium Level 4.0, Chloride Level 102, Carbon Dioxide Level 25, Anion Gap 7, Blood Urea Nitrogen 18, Creatinine 1.2, Estimat Glomerular Filtration Rate 55.4, Glucose Level 242H, Calcium Level 9.2, Triglycerides Level 105, Cholesterol Level 139, LDL Cholesterol 92, HDL Cholesterol 27L, Cholesterol/HDL Ratio 5.1H Height (Feet): 5 Height (Inches): 5.00 Weight (Pounds): 170 Objective WDWN NAD clear breath sounds bilaterally without rhonchi or wheeze [id number] without MRG NABS nontender no HSM no CCE nonfocal Jhonatan Solano MD Aug 28, 2018 10:00
[2018-08-28 11:34] VITALS: BP 145/68
[2018-08-28] MEDS ORDERED: Gentamicin inj 320 MG in NS 110 ML IVPB SCH (12:00)
[2018-08-28 16:00] VITALS: BP 144/55
--- NOTE | 2018-08-28 19:31 | NUR ---
HAND-OFF: Report given to almas bennett.
[2018-08-28] MEDS ORDERED: NS 275ml ONE (19:33)
[2018-08-28] MEDS ORDERED: Tubing IV Secondary IV ONE (19:33)
--- NOTE | 2018-08-28 19:43 | NUR ---
NURSE NOTES: RECEIVED PATIENT ASLEEP, EASILY AROUSABLE, NO COMPLAINTS OF PAIN AT THIS TIME. FALL PRECAUTIONS IN PLACE: CALL LIGHT AND BEDSIDE TABLE WITHIN REACH AND BED IN LOW POSITION. WILL CONTINUE WITH PLAN OF CARE.
[2018-08-28 20:00] VITALS: BP 176/74
[2018-08-28] MEDS: Atorvastatin 20mg tab ORAL SCH (20:51)
[2018-08-28] MEDS: Levemir Flexpen SUBQ SCH (20:53)
[2018-08-28] MEDS ORDERED: Cefepime HCl 1 GM in D5W 55 ML IVPB SCH (21:00)
[2018-08-28] MEDS ORDERED: Lexiscan 0.4mg/5ml syringe IV PRN (21:49)
--- NOTE | 2018-08-28 22:30 | NUR ---
NURSE NOTES: RONAN FROM LAB CALLED WITH CRITICAL RESULT [id number]. CALLED AND LEFT MESSAGE FOR DR. MATA.
--- NOTE | 2018-08-28 23:05 | NUR ---
NURSE NOTES: LEFT SECOND MESSAGE FOR DR. MATA. ALSO INFORMED MD PATIENT'S BP 180/74 AND PATIENT HAS NO PRN MEDS FOR ELEVATED BP. AWAITING MD CALL.
--- NOTE | 2018-08-28 23:30 | NUR ---
NURSE NOTES: STILL AWAITING CALL FROM DR. WHITEHEAD. CALLED AND LEFT MESSAGE FOR DR. GIBOSN.
[2018-08-29] VITALS: BP 180/72
--- NOTE | 2018-08-29 00:02 | NUR ---
NURSE NOTES: SHIP PAINTER HELPER AND CHARGE NURSE MADE AWARE DR. MATA IS NOT RESPONDING. RECHECKED BS-[id number]. MADE PATIENT AWARE OF NPO STATUS AFTER MIDNIGHT FOR STRESS TEST IN AM. PATIENT VERBALIZED UNDERSTANDING.
--- NOTE | 2018-08-29 00:25 | NUR ---
NURSE NOTES: DR. GIBSON PLACED NEW ORDERS. WILL CARRY OUT ORDERS.
--- NOTE | 2018-08-29 00:31 | NUR ---
NURSE NOTES: NORVASC 5MG ADMINISTERED ORDERED. INSTRUCTED PATIENT NOT TO GET OUT OF BED WITHOUT CALLING FOR ASSISTANCE. PATIENT VERBALIZED UNDERSTANDING.
--- NOTE | 2018-08-29 02:00 | Progress Note ---
DATE: 08/28/2018 CARDIOLOGY PROGRESS NOTE SUBJECTIVE: The patient feels better. She has no complaints. OBJECTIVE: VITAL SIGNS: Blood pressure 143/76, pulse 73, and respirations 18. NECK: Supple. Jugular venous pressure normal. LUNGS: Clear. CARDIAC: Regular. ABDOMEN: Soft. EXTREMITIES: No edema. LABORATORY AND DIAGNOSTIC DATA: Echocardiogram with normal ejection fraction and mild aortic stenosis. Troponin levels remained elevated up to 0.9. CK values, however, are normal. Abnormal EKG and troponin elevations are suggestive of acute myocardial infarction; however, the patient is asymptomatic and has normal CK, CK-MB, and CK-MB index level. IMPRESSION: 1. Possible acute myocardial infarction. 2. Hypertensive heart disease. 3. Possible pneumonia. 4. Type 2 diabetes mellitus. PLAN: 1. Continue current anti-anginal therapy including anti-platelet drugs. 2. Myocardial perfusion scan to assess coronary flow reserve with Lexiscan stress test. Robert Yates M.D. DR: CLARI JOB#: [id number] CC:
[2018-08-29 04:00] VITALS: BP 119/49
[2018-08-29] MEDS ORDERED: NovoLOG Insulin Flexpen SUBQ SCH (06:30)
[2018-08-29] MEDS: NovoLOG Insulin Flexpen SUBQ SCH ×4 (06:30→22:16)
--- NOTE | 2018-08-29 07:19 | NUR ---
HAND-OFF: Report given to Maria Alejandra KENDALL RN. PATIENT RESTING IN BED, NO SIGNS OF DISTRESS NOTED.
--- NOTE | 2018-08-29 07:20 | NUR ---
NURSE NOTES: Report received from Ale Shah RN.Pt lying in bed awake,alert in no distress denies any c/o chest pain or discomfort,SR on the monitor,kept NPO for Lexiscan Stress test.
--- NOTE | 2018-08-29 07:38 | NUR ---
CASE MANAGEMENT:REVIEW 63 YR OLD FEMALE TO ER CC: SOB X3 DAYS. WEAKNESS SI: PNA. UTI. ELEVATED TROPONIN 101.4 107 18 130/59 100% ON RA PLT-140 BUN+29 CR+1.5 TROPONIN(+) 0.065 IS: 2L NS BOLUS IV ROCEPHIN AZITHROMYCIN PO ASA PO CXR BLOOD C X : TO TELEMETRY 08/29/18 SI: POSSIBLE AMI. POSSIBLE PNA. DM 98.2 67 20 119/49 96% ON RA TROPONIN(+) 0.918 IS: NORVASC PO QD IV CEFEPIME Q12 IV GENTAMICIN Q36 PLAVIX PO QD LOPRESSOR PO Q12 COZAAR PO QD ASA PO QD HEPARIN SQ Q12 : TELEMETRY STATUS PLAN: STRESS TEST : INTERQUAL CRITERIA MET
[2018-08-29 08:07] VITALS: BP 137/48
--- NOTE | 2018-08-29 08:13 | General Progress Note ---
Assessment/Plan Assessment/Plan IMPRESSION chest pain possible ACS dm htn elevated troponin possible NSTEMI possible pneumonia urosepsis ESBL PLAN change antibiotic regimen await blood cultures cards eval noted stress test per cardiology update antibiotics; check urine and blood cultures maintain meds impression, plan, and exam edited and reviewed in detail care discussed with RN Subjective Allergies: Coded Allergies: PENICILLINS (Verified Allergy, Unknown, Rash, 11/24/16) Subjective reviewed findings sugars elevated patient improved Objective Last 24 Hour Vital Signs Date Time Temp Pulse Resp B/P (MAP) Pulse Ox O2 Delivery O2 Flow Rate FiO2 08/29/18 04:00 98.2 67 20 119/49 (72) 96 08/29/18 04:00 69 08/29/18 00:29 73 180/72 08/29/18 00:00 100.6 73 20 180/72 (108) 96 08/29/18 00:00 69 08/28/18 23:39 99.0 08/28/18 21:00 Room Air 08/28/18 20:52 75 176/74 08/28/18 20:00 75 08/28/18 20:00 99.9 75 20 176/74 (108) 98 08/28/18 16:00 65 08/28/18 16:00 98.6 66 18 144/55 (84) 98 08/28/18 12:00 69 08/28/18 11:34 98.9 72 18 145/68 (93) 98 08/28/18 09:00 Room Air Intake and Output 08/28/18 08/29/18 19:00 07:00 Intake Total 1140 ml 295 ml Balance 1140 ml 295 ml Intake Oral 920 ml 240 ml IV Total 220 ml 55 ml # Voids 4 3 # Bowel Movements 1 Laboratory Tests 08/28/18 21:20: Glucose Level 512#*H 08/29/18 00:25: Random Gentamicin Level 2.9 Height (Feet): 5 Height (Inches): 5.00 Weight (Pounds): 170 Objective WDWN NAD clear breath sounds bilaterally without rhonchi or wheeze [id number] without MRG NABS nontender no HSM no CCE nonfocal Jhonatan Solano MD Aug 29, 2018 08:13
--- NOTE | 2018-08-29 08:15 | NUR ---
NURSE NOTES: Pt brought downstairs per WC awake alert in no distress to NM for part 1 of the Lexiscan Stress Test accompanied by Cliff Nelson.
[2018-08-29] MEDS ORDERED: Levofloxacin 500mg tab ORAL SCH ×2 (09:00→12:45)
--- NOTE | 2018-08-29 09:00 | NUR ---
NURSE NOTES: Pt brought back to telemetry ,in stable condition, kept NPO,routine PO medic due at 0900 hold.
[2018-08-29] MEDS: Ertapenem 1 GM in NS 55 ML IVPB SCH (09:28)
--- NOTE | 2018-08-29 10:50 | Diagnostic Imaging Report ---
Indication: Shortness of breath Technique: 2 views of the chest Comparison: 08/27/2018 Findings: Again demonstrated is hazy opacity in the left perihilar region. This is best appreciated on the PA view. There is some atelectasis at the right lung base. The right lung and bilateral pleural spaces are otherwise clear. The heart is borderline enlarged. Impression: Left perihilar hazy opacity, likely infiltrate, also demonstrated on earlier studies. Recommend follow-up to resolution to exclude underlying mass Right basilar atelectasis Borderline cardiomegaly
--- NOTE | 2018-08-29 11:42 | NUR ---
NURSE NOTES: Part 2 Stress Test done at bedside,no discomfort presented,procedure tolerated well.
[2018-08-29 11:48] VITALS: BP 116/64
[2018-08-29] MEDS: Metoprolol 25mg tab ORAL SCH ×2 (12:31→22:07)
[2018-08-29] MEDS: Losartan 50mg tab ORAL SCH (12:33)
[2018-08-29] MEDS: Aspirin EC 81mg tab ORAL SCH (12:36)
[2018-08-29] MEDS: Heparin 5000 units/ml inj SUBQ SCH ×2 (12:56→22:00)
--- NOTE | 2018-08-29 13:00 | NUR ---
NURSE NOTES: Pt brought downstairs again per WC by Adeel NELSON Tech awake,alert in no distress.[id number], pt back to unit,Part 3 of Lexiscan Stress test done.Pt awake alert denies any c/o chest pain.
--- NOTE | 2018-08-29 14:23 | Diagnostic Imaging Report ---
Indications: Chest pain, laboratory evidence of acute myocardial infarction Technique: Single day single isotope protocol utilized. Initially, resting images obtained using IV administration 10.8 millicuries 99M technetium Myoview. Subsequently, patient underwent lexiscan stress testing. See cardiology report for details. During Lexiscan infusion, IV administration 31.1 mCi 99 M technetium Myoview. SPECT and planar images obtained. SPECT images gated to 8 phases of the cardiac cycle were also obtained, and reformatted into cine images for evaluation of ejection fraction. Comparison: none Findings: Per cardiology report, patient experienced chest pain for a few seconds. Per cardiology report, resting EKG demonstrates normal sinus rhythm. Presence or absence of ST changes during infusion is not described. On imaging, no fixed nor reversible post stress perfusion defects are demonstrated.. Calculated post stress ejection fraction 48%. No definite focal wall motion abnormality demonstrated. Impression: Ischemic clinical response to pharmacologic stress, per cardiology report Nonischemic electrocardiographic response to pharmacologic stress, per cardiology report No imaging findings to suggest ischemia, at level of stress achieved. Calculated post stress ejection fraction 48%
[2018-08-29 16:00] VITALS: BP 159/78
--- NOTE | 2018-08-29 19:15 | NUR ---
HAND-OFF: Report given to Amber lares RN.Pt resting quietly in bed ,stable denies any c/o pain..
[2018-08-29 20:00] VITALS: BP 145/82
--- NOTE | 2018-08-29 20:20 | NUR ---
NURSE NOTES: Recvd pt. Pt is awake alert, she appears a bit upset stating no provider has reviewed the results of her stress test. IV site is unsecured so tegaderm was replaced. Pt sis on room air. Call light within reach, will continue with plan of care
[2018-08-29] MEDS: Atorvastatin 20mg tab ORAL SCH (22:07)
[2018-08-29] MEDS: Levemir Flexpen SUBQ SCH (22:15)
[2018-08-30] VITALS: BP 139/79
[2018-08-30 04:00] VITALS: BP 144/79
--- NOTE | 2018-08-30 04:30 | Progress Note ---
DATE: 08/29/2018 CARDIOLOGY PROGRESS NOTE SUBJECTIVE: The patient had a Lexiscan stress test today. She continues to deny chest pain or shortness of breath. Troponin levels remain elevated. Glucose was elevated last evening. PHYSICAL EXAMINATION: VITAL SIGNS: Blood pressure 159/78, pulse 66, and respirations 18. LUNGS: Clear. CARDIAC: Regular. ABDOMEN: Soft. No edema. Myocardial perfusion scan revealed no fixed or reversible defect and post-stress ejection fraction was 48%. IMPRESSION AND PLAN: 1. Cardiomyopathy, likely multifactorial. Presently, no signs of acute reversible ischemia. 2. Recommend continue antianginal, anti-platelet, and statin therapy. 3. Optimize blood pressure control. 4. Consider outpatient cardiac catheterization for complete assessment of cardiomyopathy, stable for outpatient management from a cardiovascular standpoint. Robert Yates M.D. DR: SALVADOR JOB#: [id number] CC:
[2018-08-30] MEDS: NovoLOG Insulin Flexpen SUBQ SCH ×4 (06:23→21:18)
--- NOTE | 2018-08-30 07:20 | NUR ---
NURSE NOTES: Received patient from Amber DILLARD. Pt is asleep in bed. Breathing even and unlabored on RA. Bed is on lowest position, side rails x2 up, and locked. Patient is on heart monitor. Call light within reach, will continue with plan of care
--- NOTE | 2018-08-30 07:51 | NUR ---
CASE MANAGEMENT:REVIEW 08/30/18 SI: POSSIBLE ACS. POSSIBLE PNA S/P STRESS TEST ~ NEGATIVE 98.4 69 20 144/79 98% ON RA IS: LEVAQUIN PO QD NORVASC PO QD IV ERTAPENEM Q24 SS INSULIN AC+HS PLAVIX PO QD LOPRESSOR PO Q12 LEVEMIR SQ QHS COZAAR PO QD HEPARIN SQ Q12 : TELEMETRY STATUS DCP: FROM HOME
[2018-08-30 08:00] VITALS: BP 118/56
--- NOTE | 2018-08-30 08:53 | General Progress Note ---
Assessment/Plan Assessment/Plan IMPRESSION chest pain possible ACS dm htn elevated troponin possible NSTEMI possible pneumonia urosepsis ESBL PLAN on antibiotic regimen ID to recommend discharge antibiotics cards - outpatient follow up- patient aware hope to dc today or in am if stable impression, plan, and exam edited and reviewed in detail care discussed with RN Subjective Allergies: Coded Allergies: PENICILLINS (Verified Allergy, Unknown, Rash, 11/24/16) Subjective reviewed findings with patient sugars elevated patient improved Objective Last 24 Hour Vital Signs Date Time Temp Pulse Resp B/P (MAP) Pulse Ox O2 Delivery O2 Flow Rate FiO2 08/30/18 04:00 98.4 69 20 144/79 (100) 98 08/30/18 04:00 63 08/30/18 00:00 98.0 65 20 139/79 (99) 97 08/30/18 00:00 60 08/29/18 22:07 59 159/78 08/29/18 21:00 Room Air 08/29/18 20:00 97.2 75 18 145/82 (103) 100 08/29/18 18:00 59 08/29/18 16:00 97.8 66 18 159/78 (105) 100 08/29/18 12:33 116/64 08/29/18 12:31 70 116/64 08/29/18 12:24 70 116/64 08/29/18 12:00 65 08/29/18 11:48 98.5 70 18 116/64 (81) 99 08/29/18 09:00 Room Air Intake and Output 08/29/18 08/30/18 18:59 06:59 Intake Total 490 ml Balance 490 ml Intake Oral 490 ml # Voids 3 # Bowel Movements 1 Height (Feet): 5 Height (Inches): 5.00 Weight (Pounds): 170 Objective WDWN NAD clear breath sounds bilaterally without rhonchi or wheeze [id number] without MRG NABS nontender no HSM no CCE nonfocal Jhonatan Solano MD Aug 30, 2018 08:53
[2018-08-30] MEDS: Aspirin EC 81mg tab ORAL SCH (09:35)
[2018-08-30] MEDS: Metoprolol 25mg tab ORAL SCH ×2 (09:37→21:16)
[2018-08-30] MEDS: Ertapenem 1 GM in NS 55 ML IVPB SCH (09:39)
[2018-08-30] MEDS: Losartan 50mg tab ORAL SCH (09:39)
[2018-08-30] MEDS: Heparin 5000 units/ml inj SUBQ SCH ×2 (09:40→21:19)
[2018-08-30 12:00] VITALS: BP 144/52
--- NOTE | 2018-08-30 13:40 | Cardiology Report ---
APPROVED REPORT EXAM: Two-dimensional and M-mode echocardiogram with Doppler and color Doppler. INDICATION Acute myocardial infarction M-Mode DIMENSIONS IVSd1.3 (0.7-1.1cm)Left Atrium (MM)3.9 (1.6-4.0cm) LVDd4.7 (3.5-5.6cm)Aortic Root3.5 (2.0-3.7cm) PWd1.0 (0.7-1.1cm)Aortic Cusp Exc.1.7 (1.5-2.0cm) LVDs2.5 (2.5-4.0cm) PWs1.4 cm Normal left ventricular chamber size, systolic function and wall motion. Left ventricular ejection fraction estimated to be 55 %. Mild left ventricular hypertrophy. Anterior Echo-free space, may be due to pericardial fat or effusion. All other cardiac chamber sizes are within normal limits. Focal aortic valve sclerosis with adequate cusp excursion. Mildly thickened mitral valve leaflets with normal excursion. Mild mitral annulus and aortic root calcification. Pulmonic valve not well visualized. Normal tricuspid valve structure. IVC is normal in size with physiological collapse. A color flow and spectral Doppler study was performed and revealed: Mild aortic insufficiency. Peak aortic valve gradient of 20 mmHg and a mean of 10 mmHg. Aortic valve area 1.6 cm2 calculated by continuity equation. Moderate somewhat eccentric mitral regurgitation. Mitral diastolic velocities suggest mild left ventricular diastolic dysfunction (Grade I). Mild tricuspid regurgitation. Tricuspid systolic velocities suggests peak right ventricular systolic pressure of 37 mmHg, consistent with mild pulmonary hypertension. Trace pulmonic regurgitation present.
--- NOTE | 2018-08-30 13:41 | NUR ---
NURSE NOTES: Spoke with US tech. States need another reason for US ABD complete. Called Dr. Fan, , to clarify reason. Awaiting call back. Addendum: 08/30/18 at 1348 by Eddy Sorto RN Spoke to Dr. Fan. Reason involves elevated WBC and blood in urine. Notified US tech. No need to change order.
[2018-08-30 16:00] VITALS: BP 142/65
--- NOTE | 2018-08-30 19:40 | NUR ---
HAND-OFF: Report given to NISHANT Aguilera. Patient is at her bed talking oh the phone.
--- NOTE | 2018-08-30 19:45 | Consultation ---
DATE OF CONSULTATION: 08/30/2018 INFECTIOUS DISEASES CONSULTATION CONSULTING PHYSICIAN: Everton Fan M.D. REFERRING PHYSICIAN: Jhonatan Solano M.D. REASON FOR CONSULTATION: Pneumonia. HISTORY OF PRESENTING ILLNESS: This is a 63-year-old lady with history of diabetes and hypertension, who came in with chills and palpitations. She was found to have a possible pneumonia and an Infectious Diseases consultation has been obtained for antibiotics. PAST MEDICAL HISTORY: 1. History of diabetes. 2. Hypertension. MEDICATIONS: As an inpatient, the patient is on Levaquin, amlodipine, ertapenem, insulin, Lexiscan, Protonix, Plavix, metoprolol, atorvastatin, insulin, gabapentin, Cozaar, Januvia, aspirin, subcutaneous heparin, Tylenol No. 3, ibuprofen, Tylenol, and cyclobenzaprine. ALLERGIES: Penicillin, which produces hives. SOCIAL HISTORY: She used to be a smoker before, but she does not smoke anymore. She drinks alcohol socially. No history of drug use. FAMILY HISTORY: Positive for breast cancer in her mother as well as heart disease in her mother. REVIEW OF SYSTEMS: RESPIRATORY: No fever. She did have chills. No cough. No shortness of breath or chest pain. CARDIAC: No chest pain. She did have palpitations. No dizziness. No syncope. GASTROINTESTINAL: No nausea. No vomiting. No abdominal pain or diarrhea. PHYSICAL EXAMINATION: VITAL SIGNS: Temperature of 97.8, T-max of 100.6, pulse of 66, respiratory rate 20, blood pressure 118/56, and O2 saturation of 99%. HEENT: Pupils equally reactive to light and accommodation. Mouth appears clean without thrush. NECK: Supple. No adenopathy. No JVD. CARDIOVASCULAR: Regular rate and rhythm. No murmurs. LUNGS: Clear to auscultation bilaterally. No crackles. No wheezes. ABDOMEN: Soft and nontender. No organomegaly. EXTREMITIES: No cyanosis, no clubbing, no edema. LABORATORY AND DIAGNOSTIC DATA: White count 7.4, hemoglobin 10.8, hematocrit 32.4, MCV 90, platelet count of 165,000, and neutrophils of 64%. Sodium 133, potassium 4, chloride 102, bicarb 25, BUN 18, creatinine 1.2, and glucose of 512 on 08/28/2018. Calcium of 9.2. CK of 70 and CK-MB of 0.5. Troponin 0.918. Cholesterol 139. UA is showing 10 to 15 white cells. Urine culture is showing ESBL E. coli, which is susceptible to imipenem, Levaquin, piperacillin, tazobactam, and ciprofloxacin. Blood cultures are growing ESBL E. coli from 08/26/2018, which is susceptible to ertapenem, Levaquin, piperacillin, and tazobactam. Nasal swab was negative for influenza A and B. A 08/27/2018 blood culture is also growing E. coli. A 08/27/2018 urine culture is growing mixed urogenital contaminant. Chest x-ray is showing left perihilar base hazy opacity likely infiltrate and right base atelectasis noted. ASSESSMENT: This is a 63-year-old lady with history of diabetes and hypertension, who comes in and is found to have hyperglycemia with, 1. Escherichia coli sepsis secondary to urinary tract infection. 2. Escherichia coli urinary tract infection. 3. Possible pneumonia. PLAN: 1. Continue ertapenem for now. 2. Discontinue Levaquin. 3. We will follow up cultures. I would like to thank, Dr. Solano, for this consultation. Everton Fan M.D. DR: YOMI JOB#: [id number] CC: Jhonatan Solano M.D.; Fax#: [phone]
--- NOTE | 2018-08-30 19:53 | NUR ---
NURSE NOTES: RECEIVED PATIENT RESTING IN BED, NO COMPLAINTS OF PAIN AT THIS TIME. FALL PRECAUTIONS IN PLACE: CALL LIGHT AND BEDSIDE TABLE WITHIN REACH, BED IN LOW POSITION. PLAN OF CARE REVIEWED.
[2018-08-30 20:00] VITALS: BP 154/57
[2018-08-30] MEDS: Atorvastatin 20mg tab ORAL SCH (21:16)
[2018-08-30] MEDS: Levemir Flexpen SUBQ SCH (21:18)
[2018-08-31] VITALS: BP 132/55
[2018-08-31 04:00] VITALS: BP 146/57
[2018-08-31] MEDS: NovoLOG Insulin Flexpen SUBQ SCH ×2 (06:16→12:11)
--- NOTE | 2018-08-31 07:26 | NUR ---
HAND-OFF: Report given to Clive SHERWOOD RN. PATIENT ASLEEP, NO SIGNS OF DISTRESS NOTED.
--- NOTE | 2018-08-31 07:30 | NUR ---
Receiving note: Patient resting in bed, sleeping, breathing even and unlabored with 2L NC. Tele monitor reading ST. Plan for HD today and increase activity. Will recheck patient within the hour and admin medication. Addendum: 08/31/18 at 0749 by Emma Bansal RN wrong patient
--- NOTE | 2018-08-31 07:50 | NUR ---
Receiving note: Patient resting in bed, sleeping, breathing even and unlabored on room air. Tele monitor reading SR. Plan to review labs and US. Will recheck patient within the hour and admin medication. Call light in reach
[2018-08-31 08:00] VITALS: BP 165/101
--- NOTE | 2018-08-31 08:42 | Diagnostic Imaging Report ---
Indication: Abdominal pain, elevated glucose Technique: Mcpherson-scale and duplex images of the upper abdomen were obtained. Doppler interrogation of the pancreatic and hepatic vessels Comparison: Reference made to abdomen pelvis CT dated 11/24/2016 Findings: Gallbladder is filled with gallstones. No wall thickening or pericholecystic fluid Sonographic Wise's sign is negative. Common bile duct measures 6 mm in diameter. No intrahepatic biliary ductal dilatation. Liver demonstrates coarsened increased echogenicity. No focal abnormality. Portal vein and hepatic veins are patent. Pancreas is unremarkable. Spleen is unremarkable. Left kidney measures 12 cm in length. Right kidney measures 12.6 cm length. Both kidneys demonstrate normal echogenicity. There is no hydronephrosis. No focal abnormality . Non-aneurysmal abdominal aorta . Impression: Cholelithiasis. Negative for dilated bile ducts Coarsened increased hepatic echogenicity, suggests hepatocellular disease
[2018-08-31] MEDS: Aspirin EC 81mg tab ORAL SCH (09:59)
[2018-08-31] MEDS: Losartan 50mg tab ORAL SCH (09:59)
[2018-08-31] MEDS: Metoprolol 25mg tab ORAL SCH (10:00)
[2018-08-31] MEDS: Heparin 5000 units/ml inj SUBQ SCH (10:04)
[2018-08-31] MEDS: Ertapenem 1 GM in NS 55 ML IVPB SCH (10:05)
--- NOTE | 2018-08-31 10:34 | Infectious Diseases Prog Note ---
Assessment/Plan Assessment/Plan antibiotics : ertapenem A 1. esbl e.coli sepsis secondary to UTI 2. esbl e.coli UTI 3. diabetes mellitus 4. hypertension P 1. continue ertapenem in hospital 2. po levoquin on discharge 7 more days 3. will follow up cultures Subjective Constitutional: Denies: fever, chills Respiratory: Denies: shortness of breath, dry cough Gastrointestinal/Abdominal: Denies: nausea, vomiting, diarrhea Musculoskeletal: Denies: pain Allergies: Coded Allergies: PENICILLINS (Verified Allergy, Unknown, Rash, 11/24/16) Objective Vital Signs Last 24 Hour Vital Signs Date Time Temp Pulse Resp B/P (MAP) Pulse Ox O2 Delivery O2 Flow Rate FiO2 08/31/18 10:16 100 165/101 08/31/18 10:00 67 165/101 08/31/18 09:59 165/101 08/31/18 04:00 62 08/31/18 04:00 97.3 68 19 146/57 (86) 97 08/31/18 00:00 60 08/31/18 00:00 98.5 65 19 132/55 (80) 98 08/30/18 21:16 65 154/57 08/30/18 21:00 Room Air 08/30/18 20:00 96.3 65 18 154/57 (89) 99 08/30/18 20:00 78 08/30/18 16:05 61 08/30/18 16:00 97.0 68 21 142/65 (90) 99 08/30/18 12:00 97.0 64 20 144/52 (82) 99 08/30/18 12:00 57 Height (Feet): 5 Height (Inches): 5.00 Weight (Pounds): 173 Respiratory/Chest: lungs clear Cardiovascular: normal rate, regular rhythm, no gallop/murmur Abdomen: soft, non tender Extremities: no edema Current Medications Medications (Trade) Dose Ordered Sig/Ai Route PRN Reason Start Time Stop Time Status Last Admin Dose Admin Acetaminophen (Tylenol) 500 mg Q8H PRN ORAL Prn Headache/Temp > 101 08/27/18 07:15 09/26/18 07:14 08/28/18 23:08 Acetaminophen/ Codeine Phosphate (Tylenol #3) 1 tab Q8H PRN ORAL Moderate Pain (Pain Scale 4-6) 08/27/18 07:45 09/03/18 07:14 Amlodipine Besylate (Norvasc) 5 mg DAILY ORAL 08/29/18 09:00 09/28/18 08:59 08/31/18 10:16 Aspirin (Ecotrin) 81 mg DAILY ORAL 08/27/18 09:00 09/26/18 08:59 08/31/18 09:59 Atorvastatin Calcium (Lipitor) 20 mg BEDTIME ORAL 08/27/18 21:00 09/26/18 20:59 08/30/18 21:16 Clopidogrel Bisulfate (Plavix) 75 mg DAILY ORAL 08/28/18 09:00 09/27/18 08:59 08/31/18 10:00 Cyclobenzaprine HCl (Flexeril) 10 mg Q8H PRN ORAL Muscle Spasm 08/27/18 07:15 09/26/18 07:14 Dextrose (Dextrose 50%) 25 ml Q30M PRN IV Hypoglycemia 08/29/18 00:15 09/28/18 00:14 Dextrose (Dextrose 50%) 50 ml Q30M PRN IV Hypoglycemia 08/29/18 00:15 09/28/18 00:14 Ertapenem 1 gm/ Sodium Chloride 55 ml @ 110 mls/hr Q24H IVPB 08/29/18 09:00 09/03/18 08:59 08/31/18 10:05 Gabapentin (Neurontin) 300 mg BID ORAL 08/27/18 18:00 09/26/18 08:59 08/31/18 09:56 Heparin Sodium (Porcine) (Heparin 5000 units/ml) 5,000 units EVERY 12 HOURS SUBQ 08/27/18 09:00 09/26/18 08:59 08/31/18 10:04 Ibuprofen (Motrin) 600 mg Q8H PRN ORAL Mild Pain (Pain Scale 1-3) 08/27/18 07:45 09/26/18 07:14 Insulin Aspart (NovoLOG) BEFORE MEALS AND HS SUBQ 08/29/18 06:30 09/28/18 06:29 08/31/18 06:16 Insulin Detemir (Levemir) 50 units BEDTIME SUBQ 08/27/18 21:00 09/26/18 20:59 08/30/18 21:18 Losartan Potassium (Cozaar) 100 mg DAILY ORAL 08/27/18 12:59 09/26/18 12:58 08/31/18 09:59 Metoprolol Tartrate (Lopressor) 25 mg Q12HR ORAL 08/27/18 23:45 09/26/18 23:44 08/31/18 10:00 Pantoprazole (Protonix) 40 mg DAILY ORAL 08/28/18 09:00 09/27/18 08:59 08/31/18 09:57 Sitagliptin Phosphate (Januvia) 100 mg ACBREAKFAST ORAL 08/27/18 12:58 09/26/18 12:57 08/31/18 06:15 Everton Fan MD Aug 31, 2018 10:34
--- NOTE | 2018-08-31 11:03 | Pulmonology Progress Note ---
Assessment/Plan Assessment/Plan Pulmonary Progress Note Assessment/Plan IMPRESSION chest pain now resolved Non ischemic Stress test Dm Htn elevated troponin associated with Sepsis possible NSTEMI - on antiplatelet therapy possible pneumonia urosepsis ESBL PLAN on antibiotic regimen ID to recommend discharge antibiotics cards - outpatient follow up- patient aware hope to dc today or in am if stable impression, plan, and exam edited and reviewed in detail care discussed with RN Subjective Allergies: Coded Allergies: PENICILLINS (Verified Allergy, Unknown, Rash, 11/24/16) Subjective reviewed findings with patient sugars elevated patient improved Objective Height (Feet): 5 Height (Inches): 5.00 Weight (Pounds): 170 Objective WDWN NAD clear breath sounds bilaterally without rhonchi or wheeze [id number] without MRG NABS nontender no HSM no CCE nonfocal Subjective ROS Limited/Unobtainable: No Allergies: Coded Allergies: PENICILLINS (Verified Allergy, Unknown, Rash, 11/24/16) Objective Last 24 Hour Vital Signs Date Time Temp Pulse Resp B/P (MAP) Pulse Ox O2 Delivery O2 Flow Rate FiO2 08/31/18 10:16 100 165/101 08/31/18 10:00 67 165/101 08/31/18 09:59 165/101 08/31/18 04:00 62 08/31/18 04:00 97.3 68 19 146/57 (86) 97 08/31/18 00:00 60 08/31/18 00:00 98.5 65 19 132/55 (80) 98 08/30/18 21:16 65 154/57 08/30/18 21:00 Room Air 08/30/18 20:00 96.3 65 18 154/57 (89) 99 08/30/18 20:00 78 08/30/18 16:05 61 08/30/18 16:00 97.0 68 21 142/65 (90) 99 08/30/18 12:00 97.0 64 20 144/52 (82) 99 08/30/18 12:00 57 Intake and Output 08/30/18 08/31/18 18:59 06:59 Intake Total 120 ml Balance 120 ml Intake Oral 120 ml # Voids 4 2 Current Medications Medications (Trade) Dose Ordered Sig/Ai Route PRN Reason Start Time Stop Time Status Last Admin Dose Admin Acetaminophen (Tylenol) 500 mg Q8H PRN ORAL Prn Headache/Temp > 101 08/27/18 07:15 09/26/18 07:14 08/28/18 23:08 Acetaminophen/ Codeine Phosphate (Tylenol #3) 1 tab Q8H PRN ORAL Moderate Pain (Pain Scale 4-6) 08/27/18 07:45 09/03/18 07:14 Amlodipine Besylate (Norvasc) 5 mg DAILY ORAL 08/29/18 09:00 09/28/18 08:59 08/31/18 10:16 Aspirin (Ecotrin) 81 mg DAILY ORAL 08/27/18 09:00 09/26/18 08:59 08/31/18 09:59 Atorvastatin Calcium (Lipitor) 20 mg BEDTIME ORAL 08/27/18 21:00 09/26/18 20:59 08/30/18 21:16 Clopidogrel Bisulfate (Plavix) 75 mg DAILY ORAL 08/28/18 09:00 09/27/18 08:59 08/31/18 10:00 Cyclobenzaprine HCl (Flexeril) 10 mg Q8H PRN ORAL Muscle Spasm 08/27/18 07:15 09/26/18 07:14 Dextrose (Dextrose 50%) 25 ml Q30M PRN IV Hypoglycemia 08/29/18 00:15 09/28/18 00:14 Dextrose (Dextrose 50%) 50 ml Q30M PRN IV Hypoglycemia 08/29/18 00:15 09/28/18 00:14 Ertapenem 1 gm/ Sodium Chloride 55 ml @ 110 mls/hr Q24H IVPB 08/29/18 09:00 09/03/18 08:59 08/31/18 10:05 Gabapentin (Neurontin) 300 mg BID ORAL 08/27/18 18:00 09/26/18 08:59 08/31/18 09:56 Heparin Sodium (Porcine) (Heparin 5000 units/ml) 5,000 units EVERY 12 HOURS SUBQ 08/27/18 09:00 09/26/18 08:59 08/31/18 10:04 Ibuprofen (Motrin) 600 mg Q8H PRN ORAL Mild Pain (Pain Scale 1-3) 08/27/18 07:45 09/26/18 07:14 Insulin Aspart (NovoLOG) BEFORE MEALS AND HS SUBQ 08/29/18 06:30 09/28/18 06:29 08/31/18 06:16 Insulin Detemir (Levemir) 50 units BEDTIME SUBQ 08/27/18 21:00 09/26/18 20:59 08/30/18 21:18 Losartan Potassium (Cozaar) 100 mg DAILY ORAL 08/27/18 12:59 09/26/18 12:58 08/31/18 09:59 Metoprolol Tartrate (Lopressor) 25 mg Q12HR ORAL 08/27/18 23:45 09/26/18 23:44 08/31/18 10:00 Pantoprazole (Protonix) 40 mg DAILY ORAL 08/28/18 09:00 09/27/18 08:59 08/31/18 09:57 Sitagliptin Phosphate (Januvia) 100 mg ACBREAKFAST ORAL 08/27/18 12:58 09/26/18 12:57 08/31/18 06:15 Robert Rain MD Aug 31, 2018 11:03
--- NOTE | 2018-08-31 11:56 | NUR ---
IV infiltrated at start of IV atbx infusion. IV removed. ending re-placement from charge nurse d/t poor venous access. No swelling or tenderness on hand at this time. Patient's blood sugar @ 464 at this time. Left message for doctor Wilson. In addition patient says she needs to be back on Metformin, left message for Dr. Wilson. Patient upset at this time because not seen by. Providing nursing comfort measures. Per nursing secretary, contact Dr. Cobian. Left Message with this information for Dr. Cobian
[2018-08-31 12:00] VITALS: BP 159/84
--- NOTE | 2018-08-31 12:07 | NUR ---
CASE MANAGEMENT:REVIEW 08/31/18 SI: BACTEREMIA. UTI. CARDIOMYOPATHY 98.0 67 21 165/101 100% ON RA IS: NORVASC PO QD PLAVIX PO QD LOPRESSOR PO Q12 COZAAR PO QD IV ERTAPENEM Q24 ASA PO QD HEPARIN SQ Q12 : TELEMETRY STATUS DCP: PATIENT IS FROM HOME
--- NOTE | 2018-08-31 12:10 | NUR ---
DISCHARGE PLANNING MESSAGE LEFT FOR DR MATA REGARDING DISCHARGE PLAN
[2018-08-31] MEDS ORDERED: Levemir Flexpen SUBQ SCH ×2 (12:30→21:00)
[2018-08-31] MEDS ORDERED: metFORMIN 500mg tab ORAL SCH (12:30)
--- NOTE | 2018-08-31 12:39 | NUR ---
Per Dr. Solano, being care for by Dr. Rain. Seen by Dr. Rain, assessed, reviewed, instructed. New orders input. Change diet to CCHO 1800, change IV Atbx to PO levaquin 500gmQD, d/c IV. Start metformin @ home dose 1000mg BID, continue Januvia. Give 10units Levemir 1 time now and increase routine dose to 60units QHS. said recheck blood sugar in 2 hours and if less than 350 can discharge home.
[2018-08-31] MEDS ORDERED: Levofloxacin 500mg tab ORAL SCH (14:00)
--- NOTE | 2018-08-31 15:47 | NUR ---
patient blood sugar @ 155, informed Dr. Rain with TO for d/c home. Prescriptions written on script. patient ambulatory, stable, denies SOB, denies chest pain, denies weakness. 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
--- NOTE | 2018-08-31 17:01 | NUR ---
d/c instructions given,including when to seek medical care.Included instructions on all medication with script,when to take,indications,side effects. Dr Rain gave written script, photocopied and in chart. education on nutrition provided. confirmed all belongings. No IV. wrist band removed. 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 tele box removed in drawer. patient verbalized understanding.
--- NOTE | 2018-09-01 12:01 | Discharge Summary ---
Discharge Summary Discharge Summary _ DATE OF ADMISSION: 08/27/2018 DATE OF DISCHARGE: 08/31/2018 ATTENDING MD: Dr. Sammi Solano DISCHARGED BY: Dr. Robert Rain CONSULTANTS: Dr. Everton Yates [facility] HOSPITAL COURSE: Patient is a 63-year-old female with history of diabetes and high blood pressure. Patient presented to ED with chief complaint of chills and palpitations. She had rigors. She complained of body pain. She had fever and chills. She complains of slight cough. There was no diaphoresis, no radicular pain, no shortness of breath. She called 911 due to palpitations. EKG from paramedics showed possible ND. She refused to be transported by EMS. She drove herself to the hospital. On evaluation at ED, temperature was 101.5 degrees Fahrenheit. She was slightly tachycardic at 107. Blood pressure was stable. Blood work did not show any leukocytosis, hemoglobin was 10, hematocrit 33. Platelet count was 140. Sodium was 134, potassium 4.2, BUN was 29, creatinine 1.5. Lactic acid 1.10. Troponin was noted to be elevated at 0.065. Urinalysis showed 4+ protein , 2+ blood, negative nitrite, 1+ leukocyte esterase, 2-4 RBC, 10-15 WBC. She had a chest x-ray done that showed right lower lobe infiltrate as read by ER physician. She was admitted to telemetry for evaluation of chest pain, possible ACS, and possible pneumonia. Cardiac enzymes were monitored. [place] Assessor was consulted. EKG showed sinus rhythm possible inferior infarct of indeterminate age, minimal voltage for left ventricular hypertrophy and lateral T wave inversion. Troponin level continued to increase, but she remained asymptomatic. She was given antiplatelet therapy with aspirin. Plavix was added. She was given nitrates and beta-blockers. Lipid panel showed LDL 92, total cholesterol 139, HDL 27. She was given Lipitor 20 mg nightly. Echocardiogram showed normal ejection fraction and mild aortic stenosis. She had abnormal EKG and troponin elevations suggestive of acute myocardial infarction; however, patient was asymptomatic and had normal CK, CK-MB and CK- MB index level. She had a Lexiscan stress test. Myocardial perfusion scan revealed no fixed or reversible defect and post stress ejection fraction was 48%. Patient had cardiomyopathy, likely multifactorial. Presently with no signs of acute reversible ischemia. ID was consulted. Urine culture showed growth of ESBL E. coli. Blood culture from 08/26/2018 showed growth of ESBL E. coli. Nasal swab was negative for influenza a and B. A repeat blood culture on 08/27/2018 showed E. coli. She was given ertapenem while inpatient. She can be on Levaquin p.o. upon discharge. Patient has history of diabetes mellitus. Blood glucose was monitored. She was given Januvia 100 mg daily. She was given metformin 1000 mg twice daily. She was placed on NovoLog sliding scale. Glucose levels were elevated to the 500s. Patient was on Levemir 50 units subcut nightly. Levemir dose was increased to 60 units. She had a nonischemic stress test. She is stable for outpatient management. She was cleared for discharge home. To consider outpatient cardiac catheterization for complete assessment of cardiomyopathy. To complete p.o. antibiotic as recommended by ID. FINAL DIAGNOSES: ESBL E. coli sepsis secondary to UTI Chest pain, with nonischemic stress test, with findings of cardiomyopathy, likely multifactorial, with no signs of acute reversible ischemia Diabetes mellitus Hypertension Elevated troponin associated with sepsis Possible NSTEMI Possible pneumonia DISPOSITION: Patient was discharged home. DISCHARGE MEDICATIONS: Prescription was given. Continue p.o. Levaquin 500 mg daily x6 more days. DISCHARGE INSTRUCTIONS: Follow-up in a week. I have been assigned to complete a discharge summary on this account, I was not involved with the patient's management. Kaelyn Hendrickson NP Sep 01, 2018 12:01
== END 2018-08-31 17:17 | disposition home or self-care (01) | DRG 871 ==
LOC: EMR 08-27 00:30 → 2E 08-27 02:22 → EDBEDREQ 08-27 04:14 → 2E 08-29 14:07
DX: A41.9 Sepsis, unspecified organism (principal); I21.4 Non-ST elevation (NSTEMI) myocardial infarction; J18.9 Pneumonia, unspecified organism; N39.0 Urinary tract infection, site not specified; I42.9 Cardiomyopathy, unspecified; I11.9 Hypertensive heart disease without heart failure; B96.20 Unspecified Escherichia coli [E. coli] as the cause of diseases classified elsewhere; Z16.12 Extended spectrum beta lactamase (ESBL) resistance; R07.9 Chest pain, unspecified; E11.9 Type 2 diabetes mellitus without complications; Z88.0 Allergy status to penicillin; Z79.4 Long term (current) use of insulin; Z87.891 Personal history of nicotine dependence; I35.0 Nonrheumatic aortic (valve) stenosis
CPT/HCPCS: 36415; 71045; 71046; 76700; 78452; 80048; 80053; 80061; 80170; 81003; 82550; 82553; 82947; 82962; 83605; 84484; 85007; 85025; 85610; 85730; 86710; 87040; 87086; 87181; 93005; 93017; 93306; 93970; 96365; 99285; J1815; J2785; S5561

== ENCOUNTER 2019-12-08 19:53 | Emergency (ER) | payer MEDICAID ==
[~2019-12-08] VITALS: Ht 162.6 cm; Wt 78.0 kg
[~2019-12-08 19:53] MED LIST changes: +JANUVIA100 MG ORAL; +LOSARTAN POTAS100 MG ORAL; +SIMVASTATIN20 MG ORAL
--- NOTE | 2019-12-08 20:20 | NUR ---
ED Nurse Note: Recieved pt from home, here with c/o left lower back pain x 3 days at 8/10 with no relief from OTC meds, pt is awake, alert and oriented x 4, denies CP, SOB, or any other complaints, no cough, fever, pt is ambulatory, urine collected, will resume care as ordered and closely monitor.
[2019-12-08] MEDS ORDERED: Acetaminophen 500mg (ES) tab PO ONE (20:45)
--- NOTE | 2019-12-08 20:47 | Emergency Room Report ---
History of Present Illness General Chief Complaint: Lower Back Pain or Injury Source: Patient Present Illness HPI Patient felt left lower back pain that began on December 05. She denies any increased action at that time. After that however she started moving things. She never felt pain this way. She is concerned about her kidneys as her doctor warned her that her diabetes is affecting her kidneys and stopped her from using Naprosyn recently. She tried taking Tylenol yesterday. She rates the pain 10/10 on aching not radiating down her leg but radiating off to the side of her buttock area. She says the Tylenol did nothing. She denies fevers or chills. She has had urinary tract infections in the past but her urine is been clear and she denies dysuria. No blood thinners, oncologic problems, IV drug use or trauma. She states recently her doctors have told her she has some renal dysfunction. They told her not to use any nonsteroidal anti-inflammatories or aspirin. The patient does have a history of diabetes and hypertension. No sore throat, chest pain, palpitations, nausea, vomiting, diarrhea, abdominal pain, shortness of breath, rashes, depression, anxiety, visual changes, dizziness, headache. 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 Nursing Documentation: PMH: Agreed; PSxH: Agreed Nursing Documentation-PMH Hx Cardiac Problems: Yes Hx Hypertension: Yes Hx Diabetes: Yes Hx Cancer: No Hx Gastrointestinal Problems: No Hx Neurological Problems: No Review of Systems All Other Systems: negative except mentioned in HPI Physical Exam Vital Signs Date Time Temp Pulse Resp B/P (MAP) Pulse Ox O2 Delivery O2 Flow Rate FiO2 12/08/19 20:10 98.1 89 16 178/82 (114) 96 Room Air Sp02 EP Interpretation: reviewed, normal General Appearance: well appearing, no apparent distress, GCS 15 Head: normocephalic Eyes: bilateral eye normal inspection, bilateral eye PERRL, bilateral eye EOMI ENT: moist mucus membranes Neck: supple Respiratory: lungs clear, normal breath sounds Cardiovascular #1: regular rate, rhythm Cardiovascular #2: 2+ radial (R) Gastrointestinal: normal inspection, normal bowel sounds, non tender, no mass, non-distended Genitourinary: no CVA tenderness Musculoskeletal: normal range of motion, no calf tenderness, pelvis stable, gait/station normal, tender - Sacral area left-hand side with some muscle tenderness Neurologic: alert, motor strength/tone normal, DTRs symmetric, oriented x3, sensory intact, cerebellar normal, speech normal, grossly normal Psychiatric: mood/affect normal Skin: no rash, warm/dry Medical Decision Making Diagnostic Impression: Primary Impression: Lumbar pain Additional Impressions: DJD (degenerative joint disease) Qualified Codes: M19.90 - Unspecified osteoarthritis, unspecified site Renal insufficiency ER Course Patient presents with left lower back pain radiating towards the side starting December 05. Differential includes lumbar strain, sciatica, UTI, pyelonephritis, renal failure, muscle spasm amongst others. Evaluation with labs and plain films of her lower back. Patient drove herself here and will be given a dose of Tylenol for pain. Labs remarkable for elevated BUN and creatinine. This is more elevated than in the past. Sedimentation rate 108. Urinalysis clear. X-rays as reported below. DJD present. Patient somewhat improved with Tylenol. Decreased pain. Discussed findings including renal dysfunction with patient. Discussed the importance of follow-up with her own physicians. Discussed treatment plan. Patient requested a work note. This was provided. Patient stable for outpatient observation and treatment. Laboratory Tests Test 12/08/19 20:20 12/08/19 20:40 Urine Color Pale yellow Urine Appearance Slightly cloudy Urine pH 6 (4.5-8.0) Urine Specific [place] 1.010 (1.005-1.035) Urine Protein 3+ (NEGATIVE) H Urine Glucose (UA) Negative (NEGATIVE) Urine Ketones Negative (NEGATIVE) Urine Blood 1+ (NEGATIVE) H Urine Nitrite Negative (NEGATIVE) Urine Bilirubin Negative (NEGATIVE) Urine Urobilinogen Normal MG/DL (0.0-1.0) Urine Leukocyte Esterase 1+ (NEGATIVE) H Urine RBC 0-2 /HPF (0 - 2) Urine WBC 2-4 /HPF (0 - 2) Urine Squamous Epithelial Cells Few /LPF (NONE/OCC) Urine Bacteria Many /HPF (NONE) H White Blood Count 4.7 K/UL (4.8-10.8) L Red Blood Count 3.77 M/UL (4.20-5.40) L Hemoglobin 11.7 G/DL (12.0-16.0) L Hematocrit 36.5 % (37.0-47.0) L Mean Corpuscular Volume 97 FL (80-99) Mean Corpuscular Hemoglobin 31.0 PG (27.0-31.0) Mean Corpuscular Hemoglobin Concent 32.1 G/DL (32.0-36.0) Red Cell Distribution Width 12.8 % (11.6-14.8) Platelet Count 128 K/UL (150-450) L Mean Platelet Volume 10.9 FL (6.5-10.1) H Neutrophils (%) (Auto) 47.2 % (45.0-75.0) Lymphocytes (%) (Auto) 33.8 % (20.0-45.0) Monocytes (%) (Auto) 15.2 % (1.0-10.0) H Eosinophils (%) (Auto) 1.9 % (0.0-3.0) Basophils (%) (Auto) 1.9 % (0.0-2.0) Erythrocyte Sedimentation Rate 108 MM/HR (0-30) H Prothrombin Time 11.6 SEC (9.30-11.50) H Prothrombin Time INR 1.1 (0.9-1.1) Activated Partial Thromboplast Time 28 SEC (23-33) Sodium Level 135 MMOL/L (136-145) L Potassium Level 3.6 MMOL/L (3.5-5.1) Chloride Level 103 MMOL/L (98-107) Carbon Dioxide Level 24 MMOL/L (21-32) Anion Gap 8 mmol/L (5-15) Blood Urea Nitrogen 27 mg/dL (7-18) H Creatinine 1.8 MG/DL (0.55-1.30) H Estimated Glomerular Filtration Rate 34.5 mL/min (>60) Glucose Level 112 MG/DL (74-106) H Calcium Level 8.8 MG/DL (8.5-10.1) Total Bilirubin 0.5 MG/DL (0.2-1.0) Aspartate Amino Transferase (AST) 57 U/L (15-37) H Alanine Aminotransferase (ALT) 50 U/L (12-78) Alkaline Phosphatase 264 U/L (46-116) H Total Protein 9.7 G/DL (6.4-8.2) H Albumin 2.2 G/DL (3.4-5.0) L Globulin 7.5 g/dL Albumin/Globulin Ratio 0.3 (1.0-2.7) L Other X-Ray Diagnostic Results Other X-Ray Diagnostic Results : X-Ray ordered: lumbar # of Views/Limited Vs Complete: 3 View Indication: Pain EP Interpretation: Yes Interpretation: no dislocation, no soft tissue swelling, no fractures, other - osteopenia, djd Impression: Other Electronically Signed by: Electronically signed by Robert Edmonds MD Last Vital Signs Date Time Temp Pulse Resp B/P (MAP) Pulse Ox O2 Delivery O2 Flow Rate FiO2 12/08/19 23:30 98.4 78 16 154/79 99 Room Air Status: improved Disposition: HOME, SELF-CARE Condition: Improved Scripts Methocarbamol* (ROBAXIN-500*) 500 Mg Tablet 500 MG ORAL TID, #10 TAB 0 Refills Prov: Robert Edmonds MD 12/08/19 Acetaminophen (Tylenol) 325 Mg Tablet 650 MG ORAL Q6H PRN for Prn Pain/Headache/Temp > 101, #30 TAB 0 Refills Prov: Robert Edmonds MD 12/08/19 Robert Edmonds MD Dec 08, 2019 20:47
--- NOTE | 2019-12-08 21:05 | Diagnostic Imaging Report ---
EXAM: XR Lumbosacral Spine, 2 or 3 Views CLINICAL HISTORY: PAIN TECHNIQUE: Frontal and lateral views of the lumbar spine and sacrum. COMPARISON: No relevant prior studies available. FINDINGS: Vertebrae: Spine straightening, which could represent patient positioning or muscle spasm. No acute fracture. Normal alignment. Sacrum/coccyx: Unremarkable as visualized. No acute fracture. Disc spaces: Severe osteopenia and mild age-related degenerative spine findings. Soft tissues: Unremarkable. Vasculature: Atherosclerotic vascular disease. IMPRESSION: 1. No acute traumatic injury. 2. Severe osteopenia and mild age-related degenerative spine findings. 3. Spine straightening, which could represent patient positioning or muscle spasm. 4. If there is further concern, consider cross-sectional imaging.
[2019-12-08 21:06] LABS: BASOPHILS % (AUTO) 1.9 % (0.0-2.0); EOSINOPHILS % (AUTO) 1.9 % (0.0-3.0); HEMATOCRIT 36.5 % (37.0-47.0); HEMOGLOBIN 11.7 G/DL (12.0-16.0); LYMPHOCYTES % (AUTO) 33.8 % (20.0-45.0); MEAN CORPUSCULAR VOLUME 97 FL (80-99); MONOCYTES % (AUTO) 15.2 % (1.0-10.0); NEUTROPHILS % (AUTO) 47.2 % (45.0-75.0); PLATELET COUNT 128 K/UL (150-450); RED BLOOD COUNT 3.77 M/UL (4.20-5.40); RED CELL DISTRIBUTION WIDTH 12.8 % (11.6-14.8); WHITE BLOOD COUNT 4.7 K/UL (4.8-10.8)
[2019-12-08 21:14] LABS: INR 1.1 (0.9-1.1)
[2019-12-08 21:15] LABS: ANION GAP 8 mmol/L (5-15); BLOOD UREA NITROGEN 27 mg/dL (7-18); CALCIUM 8.8 MG/DL (8.5-10.1); CARBON DIOXIDE 24 MMOL/L (21-32); CHLORIDE 103 MMOL/L (98-107); CREATININE 1.8 MG/DL (0.55-1.30); POTASSIUM 3.6 MMOL/L (3.5-5.1); SODIUM 135 MMOL/L (136-145)
[2019-12-08 21:20] LABS: ALANINE AMINOTRANSFERASE 50 U/L (12-78); ALBUMIN 2.2 G/DL (3.4-5.0); ALBUMIN/GLOBULIN RATIO 0.3 (1.0-2.7); ALKALINE PHOSPHATASE 264 U/L (46-116); ASPARTATE AMINO TRANSFERASE 57 U/L (15-37); BILIRUBIN,TOTAL 0.5 MG/DL (0.2-1.0)
[2019-12-08 21:30] VITALS: BP 154/79
--- NOTE | 2019-12-08 22:15 | NUR ---
ED Nurse Note: Pt continues to rest quietly, no changes or increased distress, pt states tylenol given effective and pain at 5/10, pt denies CP or any other complaints, waiting for results and disposition, will continue to closely monitor.
[2019-12-08 22:56] LABS: APPEARANCE,URINE SLIGHTLY CLOUDY; BILIRUBIN, URINE NEGATIVE (NEGATIVE); COLOR,URINE PALE YELLOW; GLUCOSE, URINE (UA) NEGATIVE (NEGATIVE); KETONES,URINE NEGATIVE (NEGATIVE); LEUKOCYTE ESTERASE ,URINE 1+ (NEGATIVE); NITRITE,URINE NEGATIVE (NEGATIVE); PH,URINE 6 (4.5-8.0); PROTEIN,URINE 3+ (NEGATIVE); UROBILINOGEN,URINE NORMAL MG/DL (0.0-1.0)
[2019-12-08] MEDS ORDERED: TYLENOL325 MG ORAL (23:12)
[2019-12-08] MEDS ORDERED: ROBAXIN-500MG ORAL (23:12)
[2019-12-08 23:15] VITALS: BP 151/88
--- NOTE | 2019-12-08 23:25 | NUR ---
ER DISCHARGE NOTE: Patient is cleared to be discharged per ERMD, pt is aox4, on room air, with stable vital signs. pt was given dc and prescription instructions, pt was able to verbalize understanding, pt id band removed without complications. pt is able to ambulate with steady gait. pt took all belongings.
[2019-12-08 23:30] VITALS: BP 154/79
[2019-12-08] MEDS ORDERED: Methocarbamol 500mg tab ORAL ONE (23:30)
[2019-12-14] MEDS ORDERED: NITROFURANTOIN100 M2 ORAL (08:59)
== END 2019-12-08 23:30 | disposition home or self-care (01) ==
LOC: EMR 20:20
DX: M54.5 Low back pain (principal); M19.90 Unspecified osteoarthritis, unspecified site; N28.9 Disorder of kidney and ureter, unspecified; Z88.0 Allergy status to penicillin; I10 Essential (primary) hypertension; E11.9 Type 2 diabetes mellitus without complications; Z87.891 Personal history of nicotine dependence; M85.80 Other specified disorders of bone density and structure, unspecified site; I70.90 Unspecified atherosclerosis
CPT/HCPCS: 36415; 72020; 80053; 81003; 85025; 85610; 85651; 85730; 87086; 87181; Z7502; 99284